=== PATIENT | female | born 1960 | race Caucasian/White ===

== ENCOUNTER 2024-10-07 21:29 | Emergency (ER) | payer OTHER, SELFPAY ==
[2024-10-07] VITALS (9 sets, daily range): BP systolic 149; BP diastolic 94; PULSE 117–125; RESP 26; TEMP 37; O2SAT 1–95; BMI 24.8
--- NOTE | 2024-10-07 21:49 | ED.GENADULT ---
HPI - General Adult General Chief complaint: Shortness of Breath/Dyspnea Stated complaint: difficulty breathing Time Seen by Provider: 10/07/24 21:41 History of Present Illness HPI narrative: hx of COPD/ chronic emphazema. smokes 1 pack per day for the past 50 years. does not use home O2, has been having increased SOB starting last night. tried her nebulizers to help her but did not feel much relief. 86 % on room air, 64-year-old woman presenting to the emergency department concern of increasing shortness of breath. Underlying history of COPD. Shortness of breath particularly marked with exertion is been particularly increased beginning yesterday evening. She does smoke a pack a day currently. 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 Does have levalbuterol nebulizations. Has probably had 4 or 5 of them today and 1 about an hour prior to arrival. Due to insurance coverage/cost no longer has a controller medication. She has not had a fever. Does have home oximetry in would note her baseline oxygen saturation to be 92%; 96% on a good day she says. Related Data Home Medications ?Medication ?Instructions ?Recorded ?Confirmed albuterol 90 mcg/actuation aerosol mcg inhalation .prn 10/07/24 inhaler Previous Rx's ?Medication ?Instructions ?Recorded budesonide-formoterol HFA 80 2 inh inhalation BID #10.2 grams 10/08/24 mcg-4.5 mcg/actuation aerosol inhaler (Symbicort) ipratropium 0.5 mg-albuterol 3 mg 3 ml inhalation QID PRN shortness 10/08/24 (2.5 mg base)/3 mL nebulization of breath #90 mL soln prednisone 20 mg tablet 40 mg (2 x 20 mg) PO DAILY 5 days 10/08/24 #10 tabs Allergies Allergy/AdvReac Type Severity Reaction Status Date / Time Sulfa (Sulfonamide Allergy Verified 10/07/24 21:41 Antibiotics) Review of Systems Status of ROS: Reports: 6 or more systems reviewed and unremarkable except as noted in History and below PFSH PFS Social History Smoking Status: Former smoker Do you use any of these nicotine containing products: None Second hand tobacco smoke exposure: No Non-prescribed substance use: denies use service: No Exam Narrative: Exam Narrative: Pleasant. Seated in bed leaning over table. Is labored in her breathing. Oxygenating 88-90% on 1 L nasal cannula. Lungs with generally diminished breath sounds. Trace end-expiratory wheeze in the mid chest. Moderate kyphosis. Heart is tachycardic. Generally tremulous. Oropharynx is little sticky. Lower extremities without edema. Const: Vital Signs, click to edit/add: Vital Signs - 24 hr 10/07/24 21:37 10/07/24 21:46 10/07/24 21:47 Temperature 98.6 F Pulse Rate Pulse Rate [Pulse Oximeter] 121 H Respiratory Rate 26 H Blood Pressure [Ri ght Upper Arm] 149/94 H Pulse Oximetry 88 86 L 89 Oxygen Delivery Me thod Nasal Cannula Room Air Nasal Cannula Oxygen Flow Rate 1 Fraction of Inspir ed Oxygen 1 10/07/24 21:59 10/07/24 22:00 10/07/24 22:15 Temperature Pulse Rate 124 H 124 H 125 H Pulse Rate [Pulse Oximeter] Respiratory Rate Blood Pressure [Ri ght Upper Arm] Pulse Oximetry 90 89 95 Oxygen Delivery Me thod Oxygen Flow Rate Fraction of Inspir ed Oxygen 10/07/24 22:30 10/07/24 22:45 Temperature Pulse Rate 117 H 117 H Pulse Rate [Pulse Oximeter] Respiratory Rate Blood Pressure [Ri ght Upper Arm] Pulse Oximetry 90 90 Oxygen Delivery Me thod Oxygen Flow Rate Fraction of Inspir ed Oxygen Documenting provider has reviewed patient's vital signs: yes Course Vital Signs Vital signs: Initial Vital Signs Temperature 98.6 F 10/07/24 21:37 Temperature Source Temporal Artery Scan 10/07/24 21:37 Pulse Rate 121 H 10/07/24 21:37 Respiratory Rate 26 H 10/07/24 21:37 Blood Pressure 149/94 H 10/07/24 21:37 Blood Pressure Mean 112 H 10/07/24 21:37 Blood Pressure Position Sitting 10/07/24 21:37 Pulse Oximetry 88 10/07/24 21:37 Oxygen Delivery Method Nasal Cannula 10/07/24 21:37 Oxygen Flow Rate 1 10/07/24 21:37 Vital Signs Temperature 98.6 F 10/07/24 21:37 Pulse Rate 121 H 10/07/24 21:37 Respiratory Rate 26 H 10/07/24 21:37 Blood Pressure 149/94 H 10/07/24 21:37 Pulse Oximetry 88 10/07/24 21:37 Oxygen Delivery Method Nasal Cannula 10/07/24 21:37 Oxygen Flow Rate 1 10/07/24 21:37 Temperature 98.6 F 10/07/24 21:37 Pulse Rate 117 H 10/07/24 22:45 Respiratory Rate 26 H 10/07/24 21:37 Blood Pressure 149/94 H 10/07/24 21:37 Pulse Oximetry 90 10/07/24 22:45 Oxygen Delivery Method Nasal Cannula 10/07/24 21:47 Oxygen Flow Rate 1 10/07/24 21:37 Fraction of Inspired Oxygen 1 10/07/24 21:47 Medications Administered Medications: Generic Name Dose Route Start Last Admin Trade Name Freq PRN Reason Stop Dose Admin Albuterol/Ipratropium 1 neb 10/07/24 23:26 10/07/24 23:30 Iprat-Albut 0.5-2.5 Mg/3 Ml [facility] 10/07/24 23:27 1 neb ONCE ONE Administration Discontinued Medications Generic Name Dose Route Start Last Admin Trade Name Freq PRN Reason Stop Dose Admin Albuterol/Ipratropium 1 neb 10/07/24 21:58 10/07/24 22:20 Iprat-Albut 0.5-2.5 Mg/3 Ml [facility] 10/07/24 21:59 1 neb ONCE ONE Administration Lorazepam 0.5 mg 10/07/24 21:58 10/07/24 22:20 Lorazepam 2 Mg/Ml Inj IVP 10/07/24 21:59 0.5 mg ONCE ONE Administration Methylprednisolone Sodium Succinate 80 mg 10/07/24 21:58 10/07/24 22:21 Methylprednisolone Sod Succ 62.5 Mg/Ml (125) IVP 10/07/24 21:59 80 mg ONCE ONE Administration Medical Decision Making MDM Narrative Medical decision making narrative: Will give DuoNeb here. With COPD would benefit more from ipratropium bromide I think. Presumably level viewed oral as what is covered by insurance; will give albuterol here. Will need to find out what can be covered for controller medication. Would also encourage smoking cessation. This might be a pneumonia or pneumothorax as well though I doubt both these. Chest x-ray one view portable. Continue on oxygen for now not wanting to become hypercapneic Given DuoNeb and dose of lorazepam along with prednisone. Chest x-ray reviewed by me looks hyperexpanded. I do not appreciate infiltrate. No pneumothorax. The VBGs reviewed WNL On reassessment is clearly moving more air. Able to vocalize more. Less tremulous. Reports herself to feel more relaxed; muscles have relaxed. I did turn off nasal cannula oxygen and settled at 90%. Monitored for time now satting 83-84% on room air Will neb again. Might require admission for oxygen support Sats improved to 86-88% on room air. Certainly she will desaturate with ambulation. Would meet criteria for admission but would rather go; does not want to be admitted tonight. Cannot obtain oxygen at home for her tonight but well prescribe other medications and continuing course of steroid. See patient discharge plan for discussion Lab Data Lab results reviewed: Yes I reviewed the patient's lab results Labs: Lab Results 10/07/24 Range/Units 22:20 VBG pH 7.390 (7.32-7.43) VBG pCO2 46 (40-50) mmHG VBG pO2 < 30.1 (25-47) mmHG VBG HCO3 28 (21-28) mmol/L Discharge Plan Discharge Clinical Impression: COPD exacerbation, Nicotine dependence Patient Disposition: Home w/ Parent or Adult Condition: Improved Instructions: COPD (Chronic Obstructive Pulmonary Disease) (ED) Additional Instructions: I still think you can quit smoking. Sending in DuoNebs to your pharmacy. I would like you to do these 4 times a day for the next 4 days. Take this nebulizer tubing with you. Please follow-up to discuss his struggles with anxiety primary care make a plan that might be more healthy, sustaining for you. Also need to be sure that you can get the right controller medication; should include steroid and of course be covered by your insurance. Pharmacy can also help you find this. Can also call your insurance of course. The one I prescribed may not be the right 1 for you. Might benefit from having ipratropium bromide in combination with a steroid. That is in your prescribed nebulizer however for now. Would be good to follow-up for lung function visit as well. Need to know the treatments are limiting further injury. Return for persistent increased shortness of breath, fever, worsening chest pain. Prescriptions: New ipratropium-albuterol 0.5 mg-3 mg(2.5 mg base)/3 mL solution for nebulization 3 ml inhalation QID PRN (Reason: shortness of breath) Qty: 90 0RF prednisone 20 mg tablet 40 mg PO DAILY 5 Days Qty: 10 1RF budesonide-formoterol [Symbicort] 80-4.5 mcg/actuation HFA aerosol inhaler 2 inh inhalation BID Qty: 10.2 1RF Rx Instructions: Rinse mouth after inhalation No Action albuterol 90 mcg/actuation aerosol inhalation .prn Follow Up/Referrals: Provider,Not a Local [Primary Care Provider] - Stand Alone Forms: [employer] Info Instructions
--- NOTE | 2024-10-07 21:58 | CRLHL7_ITS ---
For Patients: As a result of the Century Cures Act, medical imaging exams and procedure reports are released immediately into your electronic medical record. You may view this report before your referring provider. If you have questions, please contact your health care provider. INDICATION: Dyspnea, COPD, cough. TECHNIQUE: Chest 1 view. COMPARISON: None. FINDINGS: Cardiovascular and mediastinum: Heart size and vasculature are normal in caliber and appearance. Lungs and pleural spaces: Hyperexpanded lungs with flattening of the hemidiaphragms. No consolidation, pleural effusion, or pneumothorax. Bones and soft tissues: Mild dextroconvex curvature of the spine. Otherwise, unremarkable for age IMPRESSION: No evidence of an acute pulmonary in the setting of emphysema. Dictated by Maxwell Mendoza MD @ 10/07/2024 10:37:52 PM (Electronically Signed)
--- OUTSIDE RECORDS SUMMARY | 2024-10-07 22:13 | XMS_ITS | Clinical Summary ---
Author Organization [facility] Address [place], [place] [address] Care Team Providers Care [employer] Certified Network Professional Name Role Phone Dolores Luis MD Primary Care Provider + [phone] Allergies Active Allergy Reactions Criticality Noted Date Comments Mafenide Hives 05/12/2010 Sulfa, noted as a child Pneumococcal Vaccine Other - Describe In Comment Field 08/05/2015 Redness, pain and swelling, hot to the touch Redness, pain and swelling, hot to the touch Sulfa (Sulfonamide Antibiotics) *Unknown 01/09/2021 Medications Medication Sig Dispensed Refills Start Date End Date Status LIDODERM 5 %(700 mg/patch) patch APPLY 1 PATCH TO PAINFUL AREA OF SKIN FOR UP TO 12 HOURS WITHIN A 24-HOUR PERIOD. 30 Patch 0 09/06/2013 Active ascorbic acid (VITAMIN C) 1,000 mg tablet Take 1 tablet by mouth once daily. 0 04/30/2016 Active Cholecalciferol, Vitamin D3, (VITAMIN D-3) 400 unit capsule 01/20/2020 Active famotidine (Pepcid AC) 10 mg tablet 11/21/2020 Active ibuprofen-diphen hydrAMINE 200-25 mg cap Take 1 Tablet by mouth. Active traZODone (DESYREL) 50 mg tabletIndication s:Insomnia, idiopathic Take 1-3 tablets at bedtime 200 Tablet 1 04/21/2022 Active buPROPion (WELLBUTRIN SR) 150 mg Sustained-Releas e tabletIndication s:Tobacco abuse Take 1 Tablet (150 mg) by mouth 2 times daily. 180 Tablet 04/21/2022 Active zolpidem (AMBIEN) 10 mg tabletIndication s:Primary insomnia TAKE 1 TABLET (10 MG) BY MOUTH AT BEDTIME IF NEEDED FOR SLEEP. 60 Tablet 09/27/2022 Active ibuprofen (ADVIL; MOTRIN) 800 mg tabletIndication s:Body aches TAKE 1 TABLET (800 MG) BY MOUTH 3 TIMES DAILY IF NEEDED. 270 Tablet 12/10/2022 Active Anoro Ellipta 62.5-25 mcg/actuation inhalerIndicatio ns:COPD mixed type (HC) INHALE 1 PUFF BY MOUTH 1X/DAY-DISCARD 6WKS AFTER OPENING/WHEN COUNTER READS '0', WHICHEVER COMES 1ST 60 Each 2 12/13/2023 Active levalbuterol (XOPENEX) 1.25 mg/3 mL nebulizer solutionIndicati ons:Other emphysema (HC) INHALE 3 ML VIA A NEBULIZER 2 TIMES DAILY FOR 90 DAYS. 180 mL 09/17/2024 Active levalbuterol (XOPENEX) 1.25 mg/3 mL nebulizer solutionIndicati ons:Other emphysema (HC) INHALE 3 ML VIA A NEBULIZER 2 TIMES DAILY FOR 90 DAYS. 180 mL 08/04/2024 4 Discontinued Active Problems Problem Noted Date Diagnosed Date Midline low back pain without sciatica 5 Controlled substance agreement terminated 2010 Overview (08/04/2017): Patient transferred to [facility] per note. Controlled substance agreement for vicodin 90/month on file and signed 09/28/2011. Designated pharmacy: Prescribing physician: Zeke Diagnosis: cervical disc disease hip pain Reviewed with patient on 01/28/14 Roman Alanis MD Tobacco use disorder 04/25/2011 Pain in joint, multiple sites 09/18/2010 COPD (chronic obstructive pulmonary disease) Primary insomnia 05/12/2010 Colon polyps 05/12/2010 Irritable bowel syndrome 05/12/2010 Headache(784.0) 05/12/2010 Routine health maintenance 05/12/2010 Overview (02/17/2017): Utox 01/18/17 negative for prescribed benzo and ambien. Positive for expected norco Resolved Problems Problem Noted Date Diagnosed Date Resolved Date Pulmonary emphysema 11/18/2015 11/17/20 16 Back pain 05/22/2013 11/18/2015 Overview (05/22/2013): Evisit Other emphysema 05/17/2011 11/17/2016 Pain medication agreement 09/21/2010 Overview (09/21/2010): Controlled substance agreement for vicodin bid 60/week on file and signed 09/21/2010. Designated pharmacy: [facility] Prescribing physician: Zeke Diagnosis: knee and hip pain after surgery Thomas Alanis MD .................... 09/21/2010 5:37 PM Encounters Date Type Department Care Team Description 09/14/2024 Refill [facility] [id number] [place] [phone] Dolores Luis MD Refill Request (Levalbuterol) 07/31/2024 Refill [facility] [id number] [place] [phone] Dolores Luis MD Refill Request (Levalbuterol) from Last 3 Months Immunizations Name Administration Dates Next Due AMB Influenza, IIV3 (Age >=3 years)(Flu Clinic Only) 09/04/2013 Influenza A (H1N1), Inactivated 11/07/2009 Influenza A (H1N1), Inactiva prem (Age >=3 Years) 11/07/2009 Influenza, IIV3 (Age 6-35 mos) 09/27/2011 Influenza, IIV3 (Age >=3 years) 08/21/20 12,09/27/2011,12/01/2010,2008,09/16/2006 Pneumococcal conj 13-Valent (Prevnar 13) 07/29/2015 Tdap 10/13/2021,04/29/2009 Family History Medical History Relation Name Comments Genetic Daughter Cancer-colon Father Cancer-breast Maternal Grandmother Hypertension Mother Genetic Paternal Grandfather Genetic Son Relation Name Status Comments Daughter Father (Age 55) colon canc er Maternal Grandmother Diagnos ed at 70 Mother COPD Paternal Grandfather Son Social History Tobacco Use Types Packs/Day Years Used Date Smoking Tobacco: Every Day Cigarettes 0.5 40 Smokeless Tobacco: Never Tobacco Cessation:Ready to Q uit: No; Counseling Given: No Alcohol Use Standard Drinks/Week Comments No 0 (1 standard drink = 0.6 oz pur e alcohol) PHQ-2 Answer Date Recorded PHQ-2 TOTAL SCORE 0 10/13/2021 Social Connections Answer Date Recorded Frequency of Communication with Friends and Fami ly Not on file 11/21/2021 Financial Resource Strain Answer Date R ecorded Difficulty of Paying Living Expenses Not on file 11/21/2021 Difficulty of Paying Living Expenses Not on file 11/21/2021 Sex and Gender Information Value Date Recorded Sex Assigned at Not on file Gender Identity Not on file Sexual Orientation Not on file Obstetrics History Last Filed Vital Signs Vital Sign Reading Time Taken Comments Blood Pressure 136/78 04/21/2022 11:11 AM CDT Pulse 95 04/21/2022 11:11 AM CDT Temperature 36.7 ??C (98 ??F) 04/21/2022 11:11 AM CDT Respiratory Rate 18 04/21/2022 11:11 AM CDT Oxygen Saturation 98% 04/21/2022 11:11 AM CDT Inhaled Oxygen Concentration - - Weight 85.3 kg (188 lb) 04/21/2022 11:11 AM CDT Height 160 cm (5' 3) 04/21/2022 11:11 AM CDT Body Mass Index 33.3 04/21/2022 11:11 AM CDT Plan of Treatment Health Maintenance Due Date Last Done Comments HIV for age 15-65 1975 Zoster (shingles) series for age 50+ (1 of 2) 2010 Fecal testing non-DNA (FIT,FOBT,iFOBT) for age 45-75 07/04/2013 07/04/2012 Mammogram for age 45-75 10/08/2015 10/08/20 14, 09/27/2014, 09/04/2013, Additional history exists Depression screening for age 12+ 10/13/2022 10/13/2021, 07/22/2021, 04/30/2016, Additional history exists BMI (ht and wt on same day) for age 18+ 04/21/2023 04/21/2022, 10/13/2021, 01/17/2021, Additional history exists Low Dose CT (for lung CA) age 50-80 04/30/2023 04/30/2022 COVID-19 vaccine series (2023- season) 2024 Influenza for age 50-64 07/22/2024 09/04/20 13, 08/21/2012, 09/27/2011, Additional history exists Lipids for age 45-75 10/13/2026 10/13/2021, 12/01/2010, 08/07/2009 Tetanus booster 10/13/2031 10/13/2021, 04/29/2009 Pneumococcal series for age 6-64 Aged Out 07/29/2015 No longer eligible based on patient's age to complete this topic Tdap Completed 10/13/2021, 04/29/2009 Hepatitis C screening for age 18-79 Completed 04/21/2022 Procedures Procedure Name Priority Date/Time Associated Diagnosis Comments CT CHEST SCREENING LOW DOSE WO CONTRAST Routine 04/30/2022 8:40 AM CDT Personal history of nicotine dependence ANTI HCV Routine 04/21/2022 11:45 AM CDT Need for hepatitis C screening test LIPID PANEL W REFLEX MEASURED LDL Routine 10/13/2021 6:07 PM MEAT DEPARTMENT MANAGER Routine general medical examination at health care facility XR MAMMO UNI DIAG FFDM LEFT (IA) Routine 10/08/2014 1:34 PM MEAT DEPARTMENT MANAGER Fibrocystic changes of left breast OCCULT BLOOD IFOBT STOOL Routine 07/04/2012 1:27 PM CDT Colon polyps from Last 3 Months or Most Recently Relevant to Health Maintenance Results * CT CHEST SCREENING LOW DOSE WO CONTRAST (04/30/2022 8:40 AM CDT) Anatomical Region Laterality Modality Computed Tomogra phy 04/30/2022 8:40 AM CDT Impressions 04/30/2022 9:15 PM CDT IMPRESSION: 1. ACR Assessment Category: Lung-RADS Category 2. Benign appearance or behavior. Recommendation: Continue annual screening, if clinically relevant. 2. Significant Incidental Finding(s): Category S: No. Download the LungRADS Assessment Categories table at this site: http://www.acr.org/Quality-Safety/Resources/LungRADS Narrative 04/30/2022 9:15 PM CDT EXAM: LOW DOSE LUNG CANCER SCREENING CT CHEST LOCATION: [facility] DATE/TIME: 04/30/2022 8:40 AM INDICATION: Lung cancer screening. History of smoking. COMPARISON: Chest CT performed 10/02/2012. TECHNIQUE: Scan obtained from the apices through the diaphragm without IV contrast. Low dose CT chest technique was used. Radiation dose for this scan was reduced using automated exposure control, adjustment of the mA and/or kV according to patient size, or iterative reconstruction technique. CONTRAST: None. FINDINGS: Lungs: Moderate changes of centrilobular emphysema in both upper lungs. A few tiny calcified granulomas are noted in both lungs. Mild scarring or linear atelectasis at the left lung base laterally. Several images through the lower lungs are degraded by patient motion artifact. Coronary Artery Calcification: None. Additional Findings: No enlarged lymph nodes in the chest. No pleural or pericardial effusions. There is incidentally noted lipomatous hypertrophy of the interatrial septum. Noncontrast views of the upper abdomen are limited by the low-dose technique. Degenerative changes are noted in the thoracic spine. Procedure Note Maxwell Lopez MD - 04/30/2022 EXAM: LOW DOSE LUNG CANCER SCREENING CT CHEST LOCATION: [facility] DATE/TIME: 04/30/2022 8:40 AM INDICATION: Lung cancer screening. History of smoking. COMPARISON: Chest CT performed 10/02/2012. TECHNIQUE: Scan obtained from the apices through the diaphragm without IV contrast. Low dose CT chest technique was used. Radiation dose for this scan was reduced using automated exposure control, adjustment of the mA and/or kV according to patient size, or iterative reconstruction technique. CONTRAST: None. FINDINGS: Lungs: Moderate changes of centrilobular emphysema in both upper lungs. A few tiny calcified granulomas are noted in both lungs. Mild scarring or linear atelectasis at the left lung base laterally. Several images through the lower lungs are degraded by patient motion artifact. Coronary Artery Calcification: None. Additional Findings: No enlarged lymph nodes in the chest. No pleural or pericardial effusions. There is incidentally noted lipomatous hypertrophy of the interatrial septum. Noncontrast views of the upper abdomen are limited by the low-dose technique. Degenerative changes are noted in the thoracic spine. IMPRESSION: IMPRESSION: 1. ACR Assessment Category: Lung-RADS Category 2. Benign appearance or behavior. Recommendation: Continue annual screening, if clinically relevant. 2. Significant Incidental Finding(s): Category S: No. Download the LungRADS Assessment Categories table at this site: http://www.acr.org/Quality-Safety/Resources/LungRADS Dolores Luis MD CT * ANTI HCV (04/21/2022 11:45 AM CDT) [facility] HEPATITIS C ANTIBODY Non-React chang Non-React chang 04/21/2022 11:25 PM CDT [facility] Comment:Antibodies to HCV no t detected; does not exclude the possibility of exposure to HCV. Blood BLOOD SPECIMEN / Unknown Venipuncture / Unknown 04/21/2022 11:45 AM CDT 04/21/2022 11:47 AM CDT Dolores Luis MD [facility] [address] [place] [address], * (ABNORMAL) LIPID PANEL W REFLEX MEASURED LDL (10/13/2021 6:07 PM MEAT DEPARTMENT MANAGER) [facility] CHOLESTEROL,TOTAL 221(H) 100 - 199 mg/dL 10/13/2021 10:40 PM MEAT DEPARTMENT MANAGER [facility] TRIGLYCERIDES 127 <150 mg/dL 10/13/2021 10:40 PM MEAT DEPARTMENT MANAGER [facility] HDL CHOLESTEROL 58 >40 mg/dL 10:40 PM MEAT DEPARTMENT MANAGER [facility] NON-HDL CHOLESTEROL 163(H) <145 mg/dl 10/13/2021 10:40 PM MEAT DEPARTMENT MANAGER [facility] CHOL/HDL RATIO 3.81 <4.50 10/13/2021 10:40 PM MEAT DEPARTMENT MANAGER [facility] LDL CHOLESTEROL 138(H) <=130 mg/dL 10/13/2021 10:40 PM MEAT DEPARTMENT MANAGER [facility] VLDL CHOLESTEROL 25 <=30 mg/dL 10/13/2021 10:40 PM MEAT DEPARTMENT MANAGER [facility] PROVIDER ORDERED STATUS RANDOM 10/13/2021 10:40 PM MEAT DEPARTMENT MANAGER [facility] Blood BLOOD SPECIMEN / Unknown Venipuncture / Unknown 10/13/2021 6:07 PM MEAT DEPARTMENT MANAGER 10/13/2021 6:07 PM MEAT DEPARTMENT MANAGER Dolores Luis MD CHEMISTRY [facility] [address] [place] [address], [place] * XR MAMMO UNI DIAG FFDM LEFT (10/08/2014 1:34 PM MEAT DEPARTMENT MANAGER) Anatomical Region Laterality Modality BREASTS, Breast Left Left Mammography Narrative 10/08/2014 1:57 PM MEAT DEPARTMENT MANAGER Diagnostic left breast Mammogram CLINICAL HISTORY: ?? Nodule in the left breast COMPARISON: outside films from 09/27 Technique: ??Full field digital ??MLO and CC views were obtained Findings: The breast tissue is moderately dense, less than 50%. ??The area of concern spreads out completely. ??There is no new suspicious mass or cluster of calcifications. Impression: No suspicious abnormality. Routine yearly screening mammography is recommended. The findings were discussed with the patient at the time of the examination. NICOLÁS BUTLER M.D. Diagnostic Radiologist [email or web address] Procedure Note Nicolás Butler MD - 10/08/2014 Diagnostic left breast Mammogram CLINICAL HISTORY: Nodule in the left breast COMPARISON: outside films from 09/27 Technique: Full field digital MLO and CC views were obtained Findings: The breast tissue is moderately dense, less than 50%. The area of concernspreads out completely. There is no new suspicious mass or cluster ofcalcifications. Impression: No suspicious abnormality. Routine yearly screening mammography is recommended. The findings were discussed with the patient at the time of theexamination. NICOLÁS BUTLER M.D. Diagnostic Radiologist [email or web address] Thomas Alanis MD MAMMO * OCCULT BLOOD IFOBT STOOL (07/04/2012 1:27 PM CDT) STOOL BLOOD ,IFOBT Negative Negative, Invalid 07/04/2012 1:39 PM CDT [facility] St[facility] specimen (specimen) STOOL SPECIMEN / Unknown 07/04/2012 1:27 PM CDT 07/04/2012 1:27 PM CDT Thomas Alanis MD [facility] [address] [place] [address] from Last 3 Months or Most Recently Relevant to Health Maintenance Care Teams [employer] Certified [employer] Professional Relationship Specialty [place] [id number] [place] [address] PCP - General Family Practice 01/09/21
[2024-10-07] MEDS: IPRAT-ALBUT 0.5-2.5 MG/3 ML NEB 1 NEB IH ×2 (22:20→23:30)
[2024-10-07] MEDS: LORazepam 2 MG/ML inj 0.5 MG IVP (22:20)
[2024-10-07] MEDS: METHYLPREDNISOLONE SOD SUCC 62.5 MG/ML (125) 80 MG IVP (22:21)
[2024-10-07 22:29] LABS: HCO3 VBG 28 mmol/L (21-28); PCO2 VBG 46 mmHG (40-50); PO2 VBG < 30.1 mmHG (25-47)
== END 2024-10-08 00:22 | disposition home or self-care (01) ==
PROVIDERS: Emergency Provider Family Medicine
DX: J44.1 Chronic obstructive pulmonary disease with (acute) exacerbation (principal); F17.200 Nicotine dependence, unspecified, uncomplicated
CPT/HCPCS: 36415; 71045; 82803; 96374; 96375; 99284; J2060; J2919

== ENCOUNTER 2025-05-17 08:30 | Emergency (ER) | payer OTHER, SELFPAY ==
--- OUTSIDE RECORDS SUMMARY | 2025-05-17 08:32 | XMS_ITS | Continuity of Care Document ---
Author Organization [facility] - [facility] T[facility]G Botello, Frankie Address [address] [facility] [address] [place] [address] Assessment No assessment recorded. Plan of Treatment Reminders Order Date Submit Date Provider Last Modified By Organization Details Last Modified Time Details Appointments Commerci al Physical 2024 04:00P M Navya Lees DNP Not available Not available Not available Routine Visit 2024 02:20P M Navya Lees DNP Not available Not available Not available Lab None recorded . Referral None recorded . Procedures None recorded . Surgeries None recorded . Imaging None recorded . Medication Orders None recorded . Patient TargetsNo targets recorded. Patient InstructionsNo instructions recorded. Reason for Referral None Reported. Results Created Date Observation Date Name Description Value Unit Range Abnormal Flag Note LastModifiedBy Organization Detail LastModifiedTime 05/02/20 25 04/30/2022 CT, chest , w/o contr ast No observ ation record ed. [email or web address] Available 06:12:25 05/02/20 25 01/17/2021 XR, chest , 2 view No observ ation record ed. [email or web address] Available 06:18:37 05/02/20 25 09/27/2014 MAMMO , scree chepe, bilat eral No observ ation record ed. [email or web address] Available 06:20:54 05/02/20 25 08/09/2011 colon oscop y scree chepe (PROC ) No observ ation record ed. [email or web address] Not Available 06:26:27 Result Notes None recorded. Problems Name Problem SNOMED Code Status Onset Date Resolution Date Notes Provider Name and Address Organization Details Recorded Time Irritable bowel syndrome 53614255 Active 2009 Linda Keshavared dy null, [place] - [facility] 5 06:06:27 Tobacco user 632825440 Active 2010 Linda Keshavared [place] [facility] 5 06:06:27 Chronic obstructive pulmonary disease 44474663 Active 2009 Linda Keshavared [place] [facility] 5 06:06:27 Headache 25999355 Active 2009 Linda Keshavared [place] [facility] 5 06:06:27 Low back pain 768335368 Active 2014 Linda Keshavared [place] [facility] 5 06:06:27 Patient encounter status 423191758 Active 2009 Linda Keshavared [place] [facility] 5 06:06:28 Drug therapy finding 009854448 Active 2010 Linda Keshavared [place] [facility] 5 06:06:28 Pain of multiple joints 57051718 Active 2009 Linda Keshavared [place] [facility] 5 06:06:28 Primary insomnia 1743136 Active 2009 Linda Keshavared [place] [facility] 5 06:06:28 Polyp of colon 71769032 Active 2009 Linda Keshavared dy [place] - [facility] 5 06:06:28 Dysuria 05981629 Active 2024 Navya Lees, JUAN [address], [place], [address] , [place] - [facility] 5 17:00:57 Osteopenia 651070513 Active 2024 Navya Lees DNP [address] [place], [address] , [facility] 5 10:19:05 Blood chemistry outside reference range 814074630 Active 2024 Navya Lees DNP [address] , [facility] 5 09:34:41 Disorder of bone 05244665 Active 2024 Navya Lees DNP [address] , [facility] 5 09:36:47 Acute urinary tract infection 391633265 Active 2024 Navya Lees DNP [address] , [facility] 11:30:20 Problem Notes None recorded. Procedures Surgical History Date Name Laterality Status Provider Name and Address Organization Details Recorded Time 025 Venipuncture, Blood Draw completed Nataly Grewal [facility] 05/08/2025 14:15:57 014 Date of Last Mammogram completed Linda Gaxiola [facility] 05/02/2025 06:32:48 011 Date of Last Colonoscopy completed Linda Gaxiola [facility] 05/02/2025 06:32:58 reconstruction of anterior cruciate ligament of knee joint completed Navya Lees DNP [address] [place], [address], [facility] 05/06/2025 16:20:45 section completed Linda Gaxiola [facility] 05/02/2025 06:31:31 nonsurgical manipulation of knee joint completed Linda Gaxiola [facility] 05/02/2025 06:32:13 Hysterectomy completed Navya Lees DNP [address], [place], [address], [facility] 05/06/2025 16:20:54 Imaging Results None recorded. Procedure Notes None recorded. Medical Equipment None Reported. Allergies Allergen ID Allergen Name Allergen Category Reaction Reaction Severity Criticality Documentation Date Start Date Code Code System Note Provider Name and Address Organization Details Recorded Time 46341 mafenide Not available hives Not available Not available 04/30/20252009 6572 RxNorm Sulfa , noted as a child Not Available khoi - External Data Service - prod 13:19:05 90376 Substance with sulfonami de structure and antibacte rial mechanism of action (substanc e) medicatio n Not available Not available Not available 04/30/20252020 87074 8003 SNOMED Other react ions and sever ities : '*Unk nown' . Linda Meyer ddy null, [facility] 5 06:05:58 66591 Pneumococ heidi vaccine Not available Not available Not available Not available 05/02/20252014 88393 7 RxNorm Linda armstrong null, [facility] 5 06:07:11 63214 mirtazapi ne medicatio n Not available Not available Not available 05/08/2025 01262 RxNorm Navya Lees DNP [address] [place], [address], [facility] 5 11:36:44 Medications Name Sig Start Date Stop Date Status Note LastModified by Organization Details LastModified Time bupropion HCl SR 150 mg tablet,12 hr sustained -release Take 150 mg twice a day by oral route. 05/06 completed Not Available Not Available Not Available ascorbic acid (vitamin C) 1,000 mg tablet 1000 mg by oral route. 2015 active Not Available Not Available Not Avai lable prednison e 10 mg tablet PLEASE SEE ATTACHED FOR DETAILED DIRECTIO NS 05/06 completed Not Available Not Available Not Available ipratropi um 0.5 mg-albute rol 3 mg (2.5 mg base)/3 mL nebulizat ion soln INHALE 3 ML VIA NEBULIZE R FOUR TIMES DAILY NEEDED FOR SHORTNES S OF BREATH 05/06 completed Not Available Not Available Not Available trazodone 50 mg tablet 05/06 completed Not Available Not Available Not Available azithromy philip 250 mg tablet TAKE 2 TABLETS BY MOUTH TODAY, THEN TAKE 1 TABLET DAILY FOR 4 DAYS DIRECTED 05/06 completed Not Available Not Available Not Available ibuprofen 800 mg tablet 800 mg 3 times a day by oral route. 2022 active Not Available Not Available Not Avai lable prednison e 20 mg tablet Take 2 tablets every day by oral route as directed for 5 days. 2024 active Not Available Not Available Not Avai lable Lidoderm 5 % topical patch 2012 active Not Available Not Available Not Avai lable cephalexi n 500 mg capsule Take 1 capsule twice a day by oral route as directed for 7 days. 2024 active Not Available Not Available Not Avai lable levalbute rol 1.25 mg/3 mL solution for nebulizat ion Inhale 1.25 mg 3 times a day by nebuliza tion route as needed for 30 days. 2024 active Not Available Not Available Not Avai lable zolpidem 10 mg tablet 10 mg by oral route. 2021 active Not Available Not Available Not Avai lable Pepcid AC 10 mg tablet 05/06 completed Not Available Not Available Not Available cholecalc iferol (vitamin D3) 10 mcg (400 unit) capsule 2019 active Not Available Not Available Not Avai lable cyclobenz aprine 5 mg tablet Take 1 tablet every day by oral route at bedtime for 30 days. 2024 active Not Available Not Available Not Avai lable mirtazapi ne 7.5 mg tablet Take 1 tablet every day by oral route at bedtime for 30 days. 2024 active Not Available Not Available Not Avai lable Mucinex 05/06 completed Not Available Not Available Not Available Mucinex D active Not Available Not Nancy ilable Not Available Symbicort 80 mcg-4.5 mcg/actua tion HFA aerosol inhaler INHALE 2 PUFFS TWICE A DAY RINSE MOUTH AFTER INHALATI ON 05/06 completed Not Available Not Available Not Available ibuprofen 200 mg-diphen hydramine HCl 25 mg capsule Take 1 {tbl} by oral route. 05/06 completed Not Available Not Available Not Available doxepin 3 mg tablet Take 1 tablet every day by oral route at bedtime for 30 days. 2024 active Not Available Not Available Not Avai lable Anoro Ellipta 62.5 mcg-25 mcg/actua tion powder for inhalatio n Inhale 1 puff every day by inhalati on route as directed for 90 days. 2024 active Not Available Not Available Not Avai lable marijuana (cannabis )-THC active in addition to Yi Kratom capsules Not Available Not Available Not Available Vitals None Recorded Social History Question Answer Notes LastModified by Organizat ion Details LastModified Time Tobacco Smoking Status Current Every Day Smoker [facility]ines, [place] [facility] 05/02/2025 06:09:20 Do You Have An Advance Directive? Yes [email or web address] Information not available 05/06/2025 Is Blood Transfusion Acceptable In An Emergency? Yes [email or web address] Information not available 05/06/2025 What Is Your Code Status? DNR Information not available 05/06/2025 Do You Have A Directive To Physicians? No [email or web address] Information not available 05/06/2025 What Is The Highest Grade Or Level Of School You Have Completed Or The Highest Degree You Have Received? IX93180-9 [email or web address] Information not available 05/06/2025 Are There Any Guns Present In Your Home? Yes [email or web address] Information not available 05/06/2025 Where Do You Live? [place] [email or web address] Information not available 05/06/2025 Do You Have Any Concerns About Sexual Activity? No Information not available 05/06/2025 Do You Have A Medical Power Of Community Support Professional? No Information not available 05/06/2025 Do You Have An Out Of Hospital DNR? Yes [email or web address] Information not available 05/06/2025 What Is Your Current Pack Years? 30ormorepack years [email or web address] Information not available 05/06/2025 Do You Have A Patient Advocate? No Information no t available 05/06/2025 What Is Your Relationship Status? [email or web address] Information not available 05/06/2025 Do You Use Your Seat Belt Or Car Seat Routinely? Yes Information not available 05/06/2025 Are You Sexually Active? No Information not available 05/06/2025 At What Age Did You Start Smoking Tobacco? 13 Information not available 05/06/2025 How Much Tobacco Do You Smoke? 1 PPD [email or web address] Information not available 05/06/2025 How Many Years Have You Smoked Tobacco? 52 [email or web address] Information not available 05/06/2025 Which Types Of Nicotine-free Products Have You Used? Ecig [email or web address] Information not available 05/06/2025 Sex: Female Functional Status Question Answer Note LastModified by Organizat ion Details LastModified Time Do you use any illicit or recreational drugs? Yes Daily THC user Information not available 05/06/2025 What is your level of alcohol consumption? None Information not available 05/06/2025 What is your exercise level? None [email or web address] Information not available 05/06/2025 Do you or have you ever used any nicotine-free cigarettes, vape, or chewing tobacco? Yes [email or web address] Information not available 05/06/2025 Do you currently use nicotine-free products or are you a former user of these products? Formerly used nicotine-raffaele e products [email or web address] Information not available 05/06/2025 Mental Status None recorded. Family History Relationship Description Onset Age of this Age Resolved Age Notes LastModified by Organization Details LastModified Time Father Malignant tumor of colon [email or web address] Not available 2024 15:45:12 Father Kidney stone Not av ailable 05/06/2025 16:19:27 Maternal Grandmother Malignant tumor of breast Not available 2024 15:45:12 Maternal Grandmother Family history of breast cancer [email or web address] Not available 2024 15:45:12 Mother Essential hypertension [email or web address] Not available 15:45:12 Mother Family history of chronic obstructive lung disease 71 [email or web address] Not available 15:45:13 Paternal Grandmother Malignant tumor of colon Not available 04/21 16:18:36 Medical History Condition Response Diabetes N COPD/Asthma Y Irregular Heartbeat Y Breast Cancer N High blood pressure (Hypertension) N Plantar Fasciitis N Urinary Incontinence N Diverticulitis N Stroke N Depression N Hypothyroidism N High cholesterol (Hyperlipidemia) N Heart Disease N Prediabetes N Osteoporosis N Gynecological History Statement/Question Response Date of Last Colonoscopy 08/09/2011 Date of Last Mammogram 09/27/2014 Obstetrics History GPAL:G 0 P 0 0 0 0 Immunizations Vaccine Type Date Status Note Provider Nam e and Address Organization Details Recorded Time Tdap 9 completed Linda Gaxiola null[place] - [facility] 05/02/2025 06:06:33 Tdap 1 completed Linda Gax[place]ola [place] [facility] 05/02/2025 06:06:33 Novel [id number], all formulations 9 completed Linda Gax[place]ola [place] [facility] 05/02/2025 06:06:33 Pneumococcal conjugate PCV 13 5 completed Linda Gax[place] [facility] 05/02/2025 06:06:33 Influenza, split virus, trivalent, preservative 1 completed Lindaangela Gax[place]ola [place] [facility] 05/02/2025 06:06:33 Influenza, split virus, trivalent, preservative 9 completed Linda Erasmoavabolady [place] [facility] 05/02/2025 06:06:33 Influenza, split virus, trivalent, preservative 10/01/201 2 completed Linda Keshavareddy [place] [facility] 05/02/2025 06:06:33 Influenza, split virus, trivalent, preservative 3 completed Linda [place]hav[place] [facility] 05/02/2025 06:06:33 Influenza, split virus, trivalent, preservative 6 completed [place]hav[place] [facility] 05/02/2025 06:06:33 Influenza, split virus, trivalent, preservative 1 completed Linda [place]hav[place] [facility] 05/02/2025 06:06:33 Influenza, split virus, trivalent, PF 1 completed [place]hav[place] [facility] 05/02/2025 06:06:33 Novel [id number] 9 completed Linda [place]hav[place] [facility] 05/02/2025 06:06:33 Past Encounters Encounter ID Performer Location Encounter Start Date Encounter Closed Date Diagnosis/Indication Diagnosis SNOMED-CT Code Diagnosis ICD10 Code Diagnosis Note [id number] Navya Lees, JUAN [place] [address] [facility] [address] [place] [address] 05/06/2025 15:23:19 05/06/2025 17:14:14 Primary insomnia 1005217 F51.01 - Insomnia remains symptomati c and ongoing despite previous treatments .- Patient has been self-medic ating with Tylenol PM, Kratom, and THC gummies, leading to kidney pain and grogginess .- Discussed risks of current self-medic ation regimen and potential for kidney damage.- Prescribed Doxepin for sleep, instructed to take as directed and monitor for effectiven ess and side effects.- Additional ly prescribed Flexeril (Cyclobenz aprine) as a muscle relaxant to be taken at night.- Advised to try either Doxepin or Flexeril first, and if ineffectiv e, to combine both at low doses.- Educated on the risks of long-term use of Zolpidem, especially with COPD, and the organizati on's policy on controlled substances .- Follow-up in 2 weeks to assess effectiven ess and tolerance of new medication s. Insur chavo will not cover doxepin per patient. Will send Gabapentin . Low back pain 124433480 M54.50 - Patient reports intermitte nt use of Lidoderm patches for shoulder pain secondary to past antibiotic use. - Prescribed Ibuprofen as needed for pain management . - Advised to monitor pain and report any changes or worsening symptoms. Chronic ob structive pulmonary disease 85077766 J44.9 - Chronic condition, currently stable but with recent exacerbati on in November.- Prescribed Prednisone 40 mg daily for 5 days to manage current symptoms and improve breathing. - Refilled Anoro Ellipta and Levalbuter ol for nebulizati on.- Advised to use Levalbuter ol as needed, ideally not more than once daily to avoid dependency .- Discussed the importance of avoiding respirator y depressant s like Zolpidem.- Recommende d follow-up with pulmonolog ist if symptoms persist or worsen. Family his tory of breast cancer [id number] Z80.3 - Patient has a family history of breast cancer. - Educated on the importance of regular mammograms despite patient's reluctance . - Discussed risks and benefits of mammograph y. Family his tory of cancer of colon 307564767 Z80.0 - Patient has a family history of colon cancer. - Educated on the importance of regular screenings despite patient's reluctance . - Discussed risks and benefits of colonoscop y. Osteopenia 142949096 M85 .80 - Previous diagnosis of osteopenia confirmed by bone density scan.- Advised to take Vitamin D3 and Calcium 1200 mg daily to support bone health.- Educated on the importance of weight-samantha ring exercises and avoiding smoking and excessive alcohol consumptio n.- Recommende d follow-up bone density scan to monitor progressio n. Osteopenia What You Need to KnowOsteop enia means your bones are weaker than normal but not weak enough to be called osteoporos is. It is a common condition as we age, especially in women after menopause. We find it through a bone density test (DEXA scan). What It Means: Your bones have started to lose strength, which increases your risk for fractures (broken bones) especially in the spine, hip, and wrist. Osteopeni a does not usually cause pain or symptoms, so bone scans are the only way to know. What You Can Do:1. Calcium & Vitamin Do Aim for 1,200 mg of calcium and 800 1,000 IU of vitamin D daily from food or supplement s.2. Exerciseo Do weight-samantha ring (walking, dancing) and strength-t raining exercises to help maintain bone strength.3 . Fall Prevention o Use handrails, remove loose rugs, wear sturdy shoes, and keep rooms well-lit.4 . Avoid Smoking & Limit Alcoholo Smoking and too much alcohol can weaken your bones.5. Medication so You may not need medicine yet, but if your bone loss worsens, your doctor may talk to you about treatments like bisphospho nates. Follow-Up: Repeat your DEXA scan every 2 years or as advised. Let us know if you develop new back pain, height loss, or have a fall. Call the Clinic If: You have a fall You have questions about supplement s You need help with exercise or home safety Dysuria 50942631 R30.0 - Patient reports pain/disco mfort with urination. - UA/UC as below. [id number] JUAN Ma [address] [facility] [address] [place] [address] 05/08/2025 09:21:17 05/08/2025 14:16:08 Health Concerns Section Related Observation LastModified by Organization Dethammad ls LastModified Time None Recorded Concern Status LastModified by Organization Details LastModified Time None Recorded Payers Encounter Date Sequence Insurance Name Policy Number Policy Johnson Covered Member ID Johnson Member ID Guarantor Name 05/08/2025 1 [facility] [id number] [facility] [id number] [facility] Episode No OBEpisode recorded.
[2025-05-17 08:33] VITALS: BP 147/82; PULSE 106; RESP 18; TEMP 36.1; O2SAT 99; BMI 27.4
--- OUTSIDE RECORDS SUMMARY | 2025-05-17 08:33 | XMS_ITS | Data Portability ---
Author Organization [facility] - [facility] [place], [place] Address [address] [place] [address] Assessment Encounter Date Assessment Date Assessment LastModified by Organization Details LastModified Time 05/06/2025 05/06/2025 The patient is a 65-year-old female with a history of COPD, presenting for initial visit and evaluation of insomnia and dyspnea. Total time spent: __66__ minutes on this visit including but not limited to the following tasks: Preparing to see patient and reviewing history Performing medical appropriate evaluation Providing counseling and patient/family/c aregiver education ordering tests/medication /imaging/procedu res Documenting clinical information into patent's medical record Coordinating referrals or communicating with other health care staff Next AWV Appointment Scheduled: YES Next Routine Visit Scheduled: YES [email or web address] Not available 05/07/2025 10:17:11 Plan of Treatment Reminders Order Date Submit Date Provider Last Modified By Organization Details Last Modified Time Details Appointments Commerci al Physical 2024 04:00P M Navya Lees DNP Not available Not available Not available Routine Visit 2024 02:20P M Navya Lees DNP Not available Not available Not available Lab urinalys is, dipstick , auto 2024 025 [email or web address] [facility] [address], [place], [address], 05/06/2025 18:46:00 culture, urine 2024 025 KHOI [facility] [place] [facility], [address], [place], [address], 05/08/2025 09:05:21 Referral None recorded . Procedures None recorded . Surgeries None recorded . Imaging None recorded . Medication Orders doxepin 3 mg tablet 2024 025 [facility] [address], [place], [address], 05/06/2025 18:46:05 mirtazap ine 7.5 mg tablet 2024 025 [facility], [address], [place], [address], 05/07/2025 10:19:12 cycloben zaprine 5 mg tablet 2024 025 [facility], [address], [place], [address], 05/06/2025 18:46:06 predniso ne 20 mg tablet 2024 025 [facility], [address] , [place], [address], 05/06/2025 18:46:05 levalbut gene 1.25 mg/3 mL solution for nebuliza tion 2024 025 [facility] [address] [place], [address], 05/06/2025 18:46:05 Patient TargetsNo targets recorded. Patient Instructions Encounter Date Encounter Id Patient Instructions Last Modified By Organization Details Last Modified Time 05/06/2025 [id number] - Prednisone 40 mg once daily for 5 days to help reduce your bronchitis and wheezing; prescription sent to your [facility] pharmacy. - Try doxepin at bedtime for sleep; if it does not help, you may add the prescribed Flexeril (muscle relaxant) at bedtime as directed start with one medication and see how you feel before combining. - Refills have been sent for your Anoro Ellipta inhaler and levalbuterol nebulizer solution. - Take vitamin D plus 1,200 mg of calcium daily for bone health, do weight-bearing exercises (walking or light weights), and avoid smoking and excess alcohol to help maintain your bone density. - Schedule fasting blood work in the morning to check electrolytes, kidney and liver function, cholesterol, A1c, and thyroid levels; drop off a urine sample today for UTI testing. - If your urine dipstick shows infection or the culture returns positive, an antibiotic prescription will be sent to your pharmacy. - Call this office for any urgent concerns rather than going to another urgent care so we can schedule you for a timely in-office visit. - For medication questions or follow-up via patient portal, use the phone number on your folder or send a secure message online. - Our staff will coordinate any needed specialist referrals or imaging studies and will contact you to arrange your lab appointment and a comprehensive wellness physical. [email or web address] Not available 05/06/2025 16:54:35 General Reminder s: First Call your [facility] at [phone] for any urgent health related concerns that might arise after hours. If you are experiencing symptoms of true medical emergency like a heart attack, stroke or other, call 911 right away. If you are ever in the ER or get admitted to the hospital, please notify our clinic of your visit or admission, at the above phone number, within 24-48 hours of the event whenever possible. This will help us ensure we have your hospital records accessed in a timely fashion for us to see you after discharge. If you have never provided us with your POLST, Health Care Durable Power of Retention Manager, or other such medical forms, please bring it to your visit, to ensure it is a part of your medical record. If you would like to review or complete the forms, here are the links: [email or web address] Please remember to bring all your medication bottles to your medical visits in a secure bag. Not available 05/07/2025 10:19:09 Reason for Referral None Reported. Results Created Date Observation Date Name Description Value Unit Range Abnormal Flag Note LastModifiedBy Organization Detail LastModifiedTime 05/06/20 25 05/09/2025 CULTU RE, URINE , ROUTI NE culture, urine, routine SEE NOTE abnormal CULTU RE, URINE , ROUTI NE Micro Numbe r: [id number] Test Statu s: Final Speci men Sourc e: Urine Speci men Quali ty: Adequ ate Resul t: Great er than 100,0 00 CFU/m L of Esche rosenda a coli E.col i ----- ----- ----- - INT LOTUS AMOX/ CLAVU LANAT E S 4 AMP/S ULBAC HUGHES S 4 CEFAZ PASCALE NR <=4 2 CEFEP JUSTICE S <=0.1 2 CEFTA ZIDIM E S <=1 CEFTR IAXON E S <=0.2 5 CIPRO FLOXA PHILIP S <=0.0 6 GENTA MICIN S <=1 IMIPE NEM S <=0.2 5 LEVOF LOXAC IN S <=0.1 2 MEROP ENEM S <=0.2 5 NITRO FURAN TOIN I 64 PIP/T AZOBA CTAM S <=4 TRIME THOPR IM/JUAREZ LFA S <=20 S = Susce ptibl e I = Inter media te R = Resis tant NS = Not susce ptibl e SDD = Susce ptibl e Dose Depen dent * = Not Teste d NR = Not Repor prem NN = See Thera py Comme nts THERA PY COMME NTS Note 1: For infec tions other than uncom plica prem UTI cause d by E. coli, K. pneum oniae or P. mirab ilis: Cefaz pascale is resis tant if LOTUS > or = 8 mcg/m L. (Dist ingui shing susce ptibl e versu s inter media te for isola lisset with LOTUS < or = 4 mcg/m L requi res addit ional testi ng.) Note 2: For uncom plica prem UTI cause d by E. coli, K. pneum oniae or P. mirab ilis: Cefaz pascale is susce ptibl e if LOTUS <32 mcg/m L and predi cts susce ptibl e to the oral agent s cefac anil, cefdi declan, cefpo doxim e, cefpr ozil, cefur oxime , cepha lexin and lorac arbef . Not Available [facility] [place] [facility] [address], [place], [address], 05/09/2025 08:35:55 05/06/2005/06/2025 urina lysis , dipst ick, auto Color Yellow Not Available [place] [address] [facility] [address], [place], [address], 05/06/2025 17:01:10 05/06/20 25 05/06/2025 urina lysis , dipst ick, auto Clarity Clear Not Available [place] [address] [facility] [address], [place], [address], 05/06/2025 17:01:10 05/06/20 25 05/06/2025 urina lysis , dipst ick, auto Leukocytes Trace (+-) Not Available [place] [address] [facility] [address], [place], [address], 05/06/2025 17:01:10 05/06/20 25 05/06/2025 urina lysis , dipst ick, auto Nitrite negati ve Not Available [place] [address] [facility] [address], [place], [address], 05/06/2025 17:01:10 05/06/20 25 05/06/2025 urina lysis , dipst ick, auto Urobilinogen 0.2 (3.5) Not Available [place] [address] [facility] [address], [place], [address], 05/06/2025 17:01:10 05/06/20 25 05/06/2025 urina lysis , dipst ick, auto Protein Trace (15) Not Available [place] [address] [facility] [address], [place], [address], 05/06/2025 17:01:10 05/06/20 25 05/06/2025 urina lysis , dipst ick, auto pH 6.0 Not Available [place] [address] [facility] [address], [place], [address], 05/06/2025 17:01:10 05/06/20 25 05/06/2025 urina lysis , dipst ick, auto Blood Large (3+) Not Available [place] [address] [facility] [address], [place], [address], 05/06/2025 17:01:10 05/06/20 25 05/06/2025 urina lysis , dipst ick, auto Specific [place] 1.015 Not Available [place] [address] [facility] [address], [place], [address], 05/06/2025 17:01:10 05/06/20 25 05/06/2025 urina lysis , dipst ick, auto Ketone Negati ve (-) Not Available [place] [address] [facility] [address], [place], [address], 05/06/2025 17:01:10 05/06/20 25 05/06/2025 urina lysis , dipst ick, auto Bilirubin Negati ve (-) Not Available [place] [address] [facility] [address], [place], [address], 05/06/2025 17:01:10 05/06/20 25 05/06/2025 urina lysis , dipst ick, auto Glucose Negati ve (-) Not Available [place] [address] [facility] [address], [place], [address], 05/06/2025 17:01:10 05/08/20 25 05/09/2025 LIPID PANEL WITH REFLE X TO DIREC T LDL cholesterol, total 202 mg/dL <200 high Not Available [facility] [place] [facility] [address] [facility], [place], [address], 05/09/2025 09:33:04 05/08/20 25 05/09/2025 LIPID PANEL WITH REFLE X TO DIREC T LDL HDL cholesterol 60 mg/dL > or = 50 normal Not Available [facility] [place] [facility] [address] [facility], [place], [address], 05/09/2025 09:33:04 05/08/20 25 05/09/2025 LIPID PANEL WITH REFLE X TO DIREC T LDL triglyceride s 139 mg/dL <150 normal Not Available [facility] [address] [facility], [place], [address], 05/09/2025 09:33:04 05/08/20 25 05/09/2025 LIPID PANEL WITH REFLE X TO DIREC T LDL LDL-choleste rol 117 mg/dL _(heidi c) high Refer ence range : <100 Bibiana able range <100 mg/dL for prima ry preve ntion ; <70 mg/dL for patie nts with CHD or diabe tic patie nts with > or = 2 CHD risk facto rs. LDL-C is now calcu lated using the Evie n-Hop kins calcu latio n, which is a valid ated novel metho d provi ding ranjan r accur acy than the Fried christina equat ion in the estim ation of LDL-C . Evie martin SS et al. SHARAN. 2013; 310(1 9): 2061- 2068 (http ://ed ucati on.Qu Erik INVOLTAchelsey [employer]. com/f aq/FA Q164) Not Available [facility] [place] [facility] [address] [facility], [place], [address], 05/09/2025 09:33:04 05/08/20 25 05/09/2025 LIPID PANEL WITH REFLE X TO DIREC T LDL chol/HDLC ratio 3.4 (calc ) <5.0 normal Not Available [facility] [place] [address] [facility], [place], [address], 05/09/2025 09:33:04 05/08/20 25 05/09/2025 LIPID PANEL WITH REFLE X TO DIREC T LDL non HDL cholesterol 142 mg/dL _(heidi c) <130 high For patie nts with diabe lisset plus 1 major ASCVD risk facto r, treat ing to a non-H DL-C goal of <100 mg/dL (LDL- C of <70 mg/dL ) is domenico brooks optio n. Not Available [facility] [address] [place], [address], 05/09/2025 09:33:04 05/08/20 25 05/09/2025 COMPR EHENS JEFF METAB OLIC PANEL glucose 85 mg/dL 65-99 normal Fasti ng refer ence inter len Not Available [facility] [address] [place], [address], 05/09/2025 09:33:06 05/08/20 25 05/09/2025 COMPR EHENS JEFF METAB OLIC PANEL urea nitrogen (BUN) 16 mg/dL 7-25 normal Not Available [facility] [address] [place], [address], 05/09/2025 09:33:06 05/08/20 25 05/09/2025 COMPR EHENS JEFF METAB OLIC PANEL creatinine 0.93 mg/dL 0.50-1 .05 normal Not Available [employer] [address] [place], [address], 05/09/2025 09:33:06 05/08/20 25 05/09/2025 COMPR EHENS JEFF METAB OLIC PANEL eGFR 68 mL/mi n/1.7 3m2 > or = 60 normal Not Available [facility] [address] [place], [address], 05/09/2025 09:33:06 05/08/20 25 05/09/2025 COMPR EHENS JEFF METAB OLIC PANEL BUN/creatini ne ratio SEE NOTE: (calc ) 6-22 Not Repor prem: BUN and Creat inine are withi n refer ence range . Not Available [facility] [address] [facility] [place], [address], 05/09/2025 09:33:06 05/08/20 25 05/09/2025 COMPR EHENS JEFF METAB OLIC PANEL sodium 142 mmol/ L 135-14 6 normal Not Available [facility] [address] [facility] [place], [address], 05/09/2025 09:33:06 05/08/20 25 05/09/2025 COMPR EHENS JEFF METAB OLIC PANEL potassium 4.8 mmol/ L 3.5-5. 3 normal Not Available [facility] [address] [facility] [address] [place], [address], 05/09/2025 09:33:06 05/08/20 25 05/09/2025 COMPR EHENS JEFF METAB OLIC PANEL chloride 103 mmol/ L 98-110 normal Not Available [facility] [address] [facility] [address] [place], [address], 05/09/2025 09:33:06 05/08/20 25 05/09/2025 COMPR EHENS JEFF METAB OLIC PANEL carbon dioxide 30 mmol/ L 20-32 normal Not Available [facility] [address] [facility] [place], [address], 05/09/2025 09:33:06 05/08/20 25 05/09/2025 COMPR EHENS JEFF METAB OLIC PANEL calcium 9.9 mg/dL 8.6-10 .4 normal Not Available [facility] [address] [facility] [place], [address], 05/09/2025 09:33:06 05/08/20 25 05/09/2025 COMPR EHENS JEFF METAB OLIC PANEL protein, total 6.6 g/dL 6.1-8. 1 normal Not Available [facility] [address] [facility] [place], [address], 05/09/2025 09:33:06 05/08/20 25 05/09/2025 COMPR EHENS JEFF METAB OLIC PANEL albumin 4.1 g/dL 3.6-5. 1 normal Not Available [facility] [address] [place], [address], 05/09/2025 09:33:06 05/08/20 25 05/09/2025 COMPR EHENS JEFF METAB OLIC PANEL globulin 2.5 g/dL_ (calc ) 1.9-3. 7 normal Not Available [facility] [address] [facility] [address] [place], [address], 05/09/2025 09:33:06 05/08/20 25 05/09/2025 COMPR EHENS JEFF METAB OLIC PANEL albumin/glob ulin ratio 1.6 (calc ) 1.0-2. 5 normal Not Available [employer] [facility] [address] [facility] [place], [address], 05/09/2025 09:33:06 05/08/20 25 05/09/2025 COMPR EHENS JEFF METAB OLIC PANEL bilirubin, total 0.5 mg/dL 0.2-1. 2 normal Not Available [facility] [address] [facility] [place], [address], 05/09/2025 09:33:06 05/08/20 25 05/09/2025 COMPR EHENS JEFF METAB OLIC PANEL alkaline phosphatase 85 U/L 37-153 normal Not Available [facility] [employer] [facility] [address] [facility] [place], [address], 05/09/2025 09:33:06 05/08/20 25 05/09/2025 COMPR EHENS JEFF METAB OLIC PANEL AST 26 U/L 10-35 normal Not Available [facility] [address] [facility] [place], [address], 05/09/2025 09:33:06 05/08/20 25 05/09/2025 COMPR EHENS JEFF METAB OLIC PANEL ALT 23 U/L 6-29 normal Not Available [facility] [address] [place], [address], 05/09/2025 09:33:06 05/08/20 25 05/09/2025 CBC (INCL UDES DIFF/ PLT) white blood cell count 9.8 thous and/u L 3.8-10 .8 normal Not Available [facility] [address], [place], [address], 05/09/2025 09:33:07 05/08/20 25 05/09/2025 CBC (INCL UDES DIFF/ PLT) red blood cell count 5.31 lacey on/uL 3.80-5 .10 high Not Available [facility] [place] [address], [place], [address], 05/09/2025 09:33:07 05/08/20 25 05/09/2025 CBC (INCL UDES DIFF/ PLT) hemoglobin 15.4 g/dL 11.7-1 5.5 normal Not Available [facility] [place] [facility] [address], [place], [address], 05/09/2025 09:33:07 05/08/2005/09/2025 CBC (INCL UDES DIFF/ PLT) hematocrit 49.7 % 35.0-4 5.0 high Not Available [facility] [address], [place], [address], 05/09/2025 09:33:07 05/08/20 25 05/09/2025 CBC (INCL UDES DIFF/ PLT) MCV 93.6 fL 80.0-1 00.0 normal Not Available [facility] [place] [facility] [address], [place], [address], 05/09/2025 09:33:07 05/08/20 25 05/09/2025 CBC (INCL UDES DIFF/ PLT) MCH 29.0 pg 27.0-3 3.0 normal Not Available [facility] [place] [facility] [address], [place], [address], 05/09/2025 09:33:07 05/08/20 25 05/09/2025 CBC (INCL UDES DIFF/ PLT) MCHC 31.0 g/dL 32.0-3 6.0 low For adult s, a sligh t decre ase in the calcu lated MCHC value (in the range of 30 to 32 g/dL) is most likel y not clini laura signi ria t; jacey er, it shoul d be inter prete d with cauti on in [facility] n with other red cell chriss eters and the patie nt's clini heidi condi tion. Not Available [facility] [place] [facility] [address], [place], [address], 05/09/2025 09:33:07 05/08/20 25 05/09/2025 CBC (INCL UDES DIFF/ PLT) RDW 13.0 % 11.0-1 5.0 normal Not Available [facility] [place] [facility] [address], [place], [address], 05/09/2025 09:33:07 05/08/2005/09/2025 CBC (INCL UDES DIFF/ PLT) platelet count 249 thous and/u L 140-40 0 normal Not Available [facility] [place] [facility] [address], [place], [address], 05/09/2025 09:33:07 05/08/2005/09/2025 CBC (INCL UDES DIFF/ PLT) MPV 12.2 fL 7.5-12 .5 normal Not Available [facility] [place] [facility] [address], [place], [address], 05/09/2025 09:33:07 05/08/20 25 05/09/2025 CBC (INCL UDES DIFF/ PLT) absolute neutrophils 7928 cells /uL 1500-7 800 high Not Available [facility] [address], [place], [address], 05/09/2025 09:33:07 05/08/20 25 05/09/2025 CBC (INCL UDES DIFF/ PLT) absolute lymphocytes 1470 cells /uL 850-39 00 normal Not Available [facility] [place] [facility] [address], [place], [address], 05/09/2025 09:33:07 05/08/2005/09/2025 CBC (INCL UDES DIFF/ PLT) absolute monocytes 265 cells /uL 200-95 0 normal Not Available [facility] [address], [place], [address], 05/09/2025 09:33:07 05/08/20 25 05/09/2025 CBC (INCL UDES DIFF/ PLT) absolute eosinophils 59 cells /uL 15-500 normal Not Available [facility] [place] [facility] [address], [place], [address], 05/09/2025 09:33:07 05/08/20 25 05/09/2025 CBC (INCL UDES DIFF/ PLT) absolute basophils 78 cells /uL 0-200 normal Not Available [facility] [address], [place], [address], 05/09/2025 09:33:07 05/08/20 25 05/09/2025 CBC (INCL UDES DIFF/ PLT) neutrophils 80.9 % normal Not Available [facility] [address], [place], [address], 05/09/2025 09:33:07 05/08/20 25 05/09/2025 CBC (INCL UDES DIFF/ PLT) lymphocytes 15.0 % normal Not Available [facility] [address] [facility] [place], [address], 05/09/2025 09:33:07 05/08/20 25 05/09/2025 CBC (INCL UDES DIFF/ PLT) monocytes 2.7 % normal Not Available [facility] [place], [address], 05/09/2025 09:33:07 05/08/20 25 05/09/2025 CBC (INCL UDES DIFF/ PLT) eosinophils 0.6 % normal Not Available [facility] [address] [place], [address], 05/09/2025 09:33:07 05/08/20 25 05/09/2025 CBC (INCL UDES DIFF/ PLT) basophils 0.8 % normal Not Available [facility] [address] [place] [address], [address], 05/09/2025 09:33:07 05/08/20 25 05/09/2025 VITAM IN B12/F OLATE , SERUM PANEL vitamin B12 894 pg/mL 200-11 00 normal Not Available [facility] [place], [address], 05/09/2025 09:33:08 05/08/20 25 05/09/2025 VITAM IN B12/F OLATE , SERUM PANEL folate, serum 17.9 NG/mL normal Refer ence Range Low: <3.4 Borde rline : 3.4-5 .4 Natasha l: >5.4 Not Available [facility] [place], [address], 05/09/2025 09:33:08 05/08/20 25 05/09/2025 TSH W/REF KEATON TO FT4 TSH w/reflex to FT4 0.66 mIU/L 0.40-4 .50 normal Not Available [facility] [address] [place], [address], 05/09/2025 09:33:09 05/08/20 25 05/09/2025 VITAM IN D,25- OH,TO RUPERT,I A vitamin D,25-oh,tota l,ia 28 NG/mL 30-100 low Vitam in D Statu s 25-OH Vitam in D: Defic iency : <20 ng/mL Insuf ficie ncy: 20 - 29 ng/mL Optim al: > or = 30 ng/mL For 25-OH Vitam in D testi ng on patie nts on D2-juarez pplem entat ion and patie nts for whom quant itati on of D2 and D3 fract ions is requi red, the [facility] Assur eD(TM ) 25-OH VIT D, (D2,D 3), LC/MS /MS is recom moises d: order code 08343 (venkata ents >2yrs ). See Note 1 Note 1 For addit ional infor gypsy obrien refer to http: //regine bernsteinQue stDia gnost ics.c om/fa q/FAQ 199 (This link is being provi ded for infor lizette dsyon/ sebastien avila purpo ses only. ) Not Available [facility] [place] [facility] [address] [place], [address], 05/09/2025 09:33:10 05/08/2005/09/2025 HEMOG LOBIN A1C hemoglobin A1C 5.6 % <5.7 normal For the purpo se of scree chepe for the prese nce of diabe lisset: <5.7% Consi stent with the absen ce of diabe lisset 5.7-6 .4% Consi stent with incre ased risk for diabe lisset (pred iabet es) > or =6.5% Consi stent with diabe lisset This assay resul t is consi stent with a decre ased risk of diabe lisset. Curre ntly, no conse nsus exist s regar ding use of hemog lobin A1c for diagn osis of diabe lisset in child gwendolyn. Accor ding to Ameri can Diabe lisset Assoc iatio n (ADA) guide lines , hemog lobin A1c <7.0% repre sents optim al contr ol in non-p regna nt diabe tic patie nts. Diffe rent metri cs may apply to speci fic patie nt popul ation s. Stand ards of Medic al Care in Diabe lisset(A DA). Not Available [facility] [place] [facility] [address], [place], [address], 05/09/2025 09:33:11 05/02/20 25 04/30/2022 CT, chest , w/o [...] Organization Details Recorded Time Irritable bowel syndrome 73117306 Active 2009 Linda Erasmoavared dy null, [place] - [facility] 5 06:06:27 Tobacco user [id number] Active 2010 Linda Keshavared dy [place] [facility] 5 06:06:27 Chronic obstructive pulmonary disease 25732660 Active 2009 Linda Mattshavared dy [place] [facility] 5 06:06:27 Headache 36076625 Active 2009 Linda Mattshavared [place] [facility] 5 06:06:27 Low back pain 914052335 Active 2014 Linda Erasmoavared dy [place] [facility] 5 06:06:27 Patient encounter status [id number] Active 2009 Linda Mattshavared dy [place] [facility] 5 06:06:28 Drug therapy finding 510870097 Active 2010 Linda Keshavared dy [place] [facility] 5 06:06:28 Pain of multiple joints 64020089 Active 2009 Linda Mattshavared dy [place] [facility] 5 06:06:28 Primary insomnia 1866864 Active 2009 Linda Erasmoavared dy [place] [facility] 5 06:06:28 Polyp of colon 51109421 Active 2009 Linda Erasmoavared dy [place] [facility] 5 06:06:28 Dysuria 52518861 Active 2024 Navya Lees DNP [address], [place], [address] , [place] - [facility] 5 17:00:57 Osteopenia 542201211 Active 2024 Navya Lees DNP [address], [place], [address] , [place] [facility] [facility] 10:19:05 Blood chemistry outside reference range [id number] Active 2024 Navya Lees DNP [address], [place], [address] , [place] - [facility] 5 09:34:41 Disorder of bone 84948647 Active 2024 Navya Lees DNP [address] [place], [address] [place] [address] [facility] 09:36:47 Acute urinary tract infection 944722634 Active 2024 Navya Lees DNP [address] [place], [address] [place] [address] [facility] 11:30:20 Problem Notes None recorded. Procedures Surgical History Date Name Laterality Status Provider Name and Address Organization Details Recorded Time 025 Venipuncture, Blood Draw completed Nataly Grewal [facility] 05/08/2025 14:15:57 014 Date of Last Mammogram completed Linda Gaxiola [facility] 05/02/2025 06:32:48 011 Date of Last Colonoscopy completed Linda Gaxiola [facility] 05/02/2025 06:32:58 reconstruction of anterior cruciate ligament of knee joint completed Navya Lees DNP [address] [place], [address] [place] [address] [facility] 05/06/2025 16:20:45 section completed Linda Gaxiola [facility] 05/02/2025 06:31:31 nonsurgical manipulation of knee joint completed Linda Gaxiola [facility] 05/02/2025 06:32:13 Hysterectomy completed Nayva Lees DNP [address] [place], [address] [place] [address] [facility] 05/06/2025 16:20:54 Imaging Results None recorded. Procedure Notes None recorded. Medical Equipment None Reported. Allergies Allergen ID Allergen Name Allergen Category Reaction Reaction Severity Criticality Documentation Date Start Date Code Code System Note Provider Name and Address Organization Details Recorded Time 60548 mafenide Not available hives Not available Not available 04/30/20252009 6572 RxNorm Sulfa , noted as a child Not Available khoi - External Data Service - prod 13:19:05 86420 Substance with sulfonami de structure and antibacte rial mechanism of action (substanc e) medicatio n Not available Not available Not available 04/30/20252020 20886 8003 SNOMED Other react ions and sever ities : '*Unk nown' . Linda Betsy ddy null[place] - [facility] 5 06:05:58 80768 Pneumococ heidi vaccine Not available Not available Not available Not available 05/02/20252014 51256 7 RxNorm Linda Meyer ddy null[place] - [facility] 5 06:07:11 57393 mirtazapi ne medicatio n Not available Not available Not available 05/08/2025 45548 RxNorm Navya Lees , DNP [address] [facility], [place], [address] [place] [address] - [facility] 5 11:36:44 Medications Name Sig Start [...] marijuana (cannabis )-THC active in addition to Urdu Kratom capsules Not Available Not Available Not Available Vitals Date Recorded Body weight Body mass index (BMI) Body height Oxygen saturation Oxygen saturation in Arterial blood by Pulse oximetry Body temperature Heart rate Systolic blood pressure Diastolic blood pressure Provider Name and Address Organization Details Last Updated DateTime 30569.1 9 g 29.1 kg/m2 157.48 cm 95 % 95 % 98.2 [degF] 102 /min 133 mm[Hg] 82 mm[Hg] Lorena Smith [place] - [facility] 15:51:52 Social History Question Answer Notes LastModified by Organizat ion Details LastModified Time Tobacco Smoking Status Current Every Day Smoker [facility] [facility] 05/02/2025 06:09:20 Do You Have An Advance Directive? Yes [email or web address] Information not available 05/06/2025 Is Blood Transfusion Acceptable In An Emergency? Yes [email or web address] Information not available 05/06/2025 What Is Your Code Status? DNR [email or web address] Information not available 05/06/2025 Do You Have A Directive To Physicians? No [email or web address] Information not available 05/06/2025 What Is The Highest Grade Or Level Of School You Have Completed Or The Highest Degree You Have Received? [id number] Information not available 05/06/2025 Are There Any Guns Present In Your Home? Yes [email or web address] Information not available 05/06/2025 Where Do You Live? [place] [email or web address] Information not available 05/06/2025 Do You Have Any Concerns About Sexual Activity? No [email or web address] Information not available 05/06/2025 Do You Have A Medical Power Of Retention Manager? No Information not available 05/06/2025 Do You Have An Out Of Hospital DNR? Yes [email or web address] Information not available 05/06/2025 What Is Your Current Pack Years? 30ormorepack years [email or web address] Information not available 05/06/2025 Do You Have A Patient Advocate? No [email or web address] Information no t available 05/06/2025 What Is Your Relationship Status? Information not available 05/06/2025 Do You Use Your Seat Belt Or Car Seat Routinely? Yes Information not available 05/06/2025 Are You Sexually Active? No [email or web address] Information not available 05/06/2025 At What Age Did You Start Smoking Tobacco? 13 Information not available 05/06/2025 How Much Tobacco Do You Smoke? 1 PPD [email or web address] Information not available 05/06/2025 How Many Years Have You Smoked Tobacco? 52 Information not available 05/06/2025 Which Types Of Nicotine-free Products Have You Used? Ecig [email or web address] Information not available 05/06/2025 Sex: Female Functional Status Question Answer Note LastModified by Organizat ion Details LastModified Time Do you use any illicit or recreational drugs? Yes Daily THC user [email or web address] Information not available 05/06/2025 What is your level of alcohol consumption? None [email or web address] Information not available 05/06/2025 What is your exercise level? None Information not available 05/06/2025 Do you or have you ever used any nicotine-free cigarettes, vape, or chewing tobacco? Yes [email or web address] Information not available 05/06/2025 Do you currently use nicotine-free products or are you a former user of these products? Formerly used nicotine-raffaele e products [email or web address] Information not available 05/06/2025 Mental Status None recorded. Family History Relationship Description Onset Age of this Age Resolved Age Notes LastModified by Organization Details LastModified Time Father Malignant tumor of colon Not available 2024 15:45:12 Father Kidney stone Not av ailable 05/06/2025 16:19:27 Maternal Grandmother Malignant tumor of breast [email or web address] Not available 2024 15:45:12 Maternal Grandmother Family history of breast cancer [email or web address] Not available 2024 15:45:12 Mother Essential hypertension [email or web address] Not available 15:45:12 Mother Family history of chronic obstructive lung disease 71 [email or web address] Not available 15:45:13 Paternal Grandmother Malignant tumor of colon andrse Not available 04/21 16:18:36 Medical History Condition [...] Details Recorded Time Tdap 9 completed Linda Erasmoavabolady [place] [facility] 05/02/2025 06:06:33 Tdap 1 completed Lindaangela Singh[place] [facility] 05/02/2025 06:06:33 Novel [id number], all formulations 9 completed Linda [place]asmoavareddy [place] [facility] 05/02/2025 06:06:33 Pneumococcal conjugate PCV 13 5 completed Linda [place]avared[place] [facility] 05/02/2025 06:06:33 Influenza, split virus, trivalent, preservative 1 completed Linda [place]ared[place] [facility] 05/02/2025 06:06:33 Influenza, split virus, trivalent, preservative 9 completed Linda Mattshavareddy [place] [facility] 05/02/2025 06:06:33 Influenza, split virus, trivalent, preservative 2 completed Linda [place]avared[place] [facility] [...] [facility] 05/02/2025 06:06:33 Novel [id number] 9 completed Linda [place]eshavareddy [place] [facility] 05/02/2025 06:06:33 Past Encounters Encounter ID Performer Location Encounter Start Date Encounter Closed Date Diagnosis/Indication Diagnosis SNOMED-CT Code Diagnosis ICD10 Code Diagnosis Note [id number] JUAN Ma [address] [facility] [address] [place] [address] 05/06/2025 15:23:19 05/06/2025 17:14:14 Primary insomnia 5328709 F51.01 - Insomnia remains symptomati c and [...] of Zolpidem, especially with COPD, [facility] .- Follow-up in 2 weeks to assess effectiven ess and tolerance of new medication s. Insur chavo will not cover doxepin per patient. Will send Gabapentin . Low back pain 391355794 M54.50 - Patient reports intermitte nt use of Lidoderm patches for shoulder pain secondary to past antibiotic use. - Prescribed Ibuprofen as needed for pain management . - Advised to monitor pain and report any changes or worsening symptoms. Chronic ob structive pulmonary disease 20067049 J44.9 - Chronic condition, currently stable but [...] worsen. Family his tory of breast cancer 477923522 Z80.3 - Patient has a family history of breast cancer. - Educated on the importance of regular mammograms despite patient's reluctance . - Discussed risks and benefits of mammograph y. Family his tory of cancer of colon 381209478 Z80.0 - Patient has a family history of colon cancer. - Educated on the importance of regular screenings despite patient's reluctance . - Discussed risks and benefits of colonoscop y. Osteopenia 983109123 M85 .80 - Previous diagnosis of osteopenia [...] help with exercise or home safety Dysuria 54648964 R30.0 - Patient reports pain/disco mfort with urination. - UA/UC as below. [id number] Navya Lees, JUAN Frankie [address] [facility]1] [address] [place] [address] 05/08/2025 09:21:17 05/08/2025 14:16:08 Health Concerns Section Related Observation LastModified by Organization Detai ls LastModified Time None Recorded Concern Status LastModified by Organization Details LastModified Time None Recorded Advance Directives Directive Y: Payers Insurance Date Sequence Insurance Name Policy Number Policy Johnson Covered Member ID Johnson Member ID Guarantor Name 04/30/2025 1 [facility] [email or web address] [id number] [facility] [email or web address] 05/13/2025 1 [facility] [id number] [facility] [id number] [facility] Notes Date Note Type Note Provider Name and Address Organization Details Recorded Time 05/06/2025 text/html The patient is a 65-year-old female with a history of COPD, presenting for initial visit and evaluation of insomnia and dyspnea. Insomnia: - History of insomnia, previously managed with Zolpidem for 5-10 years. - Discontinued Zolpidem 1.5 years ago due to concerns about Alzheimer's disease. - Currently using a combination of 3 Tylenol PM, 2 Kratom, and 2 5 mg THC gummies for sleep. - Reports feeling horribly groggy the next day and experiencing kidney pain. - Tried multiple medications for insomnia, including trazodone and Wellbutrin, with poor results. - Denies use of benzodiazepines or mood elevators. - Experiences restless legs, anxiety, and hip/knee pain at night. - Denies interest in a sleep study. COPD: - History of COPD, with a recent exacerbation in November requiring ER visit at [facility]. - Uses Anoro Ellipta inhaler and levobuterol nebulizer. - Has an oxygen concentrator at home for use at night if needed. - Reports dyspnea, congestion, and coughing at night, making sleep difficult. - Last used prednisone in November, which was helpful but caused side effects such as swelling, increased appetite, and jitteriness. - Mother had COPD. Family History: - Mother had COPD and HTN. - Father had colon cancer and kidney stones. - Maternal grandmother had breast cancer. - Paternal grandmother had colon cancer. - Daughter and son have dislocating patellas. Surgical History: - Three C-sections. - Hysterectomy. - Bilateral patellar realignment. Allergies: - Allergic to mafenide, pneumococcal vaccine, and sulfa medications. Social History: - Current smoker. - Denies alcohol use. - Works full-time with flexible hours. Navya Lees, JUAN [address], [place], [address], [place] - [facility] 05/07/2025 10:20:38 OBGyn Episode No OBEpisode recorded.
--- OUTSIDE RECORDS SUMMARY | 2025-05-17 08:33 | XMS_ITS | Clinical Summary ---
Author Organization [facility] Address [address] [place] [address] Care Team Providers Care Follow Up Specialist Name Role Phone Dolores Luis MD Primary Care Provider + [phone] Allergies Active Allergy Reactions Criticality Noted Date Comments Mafenide Hives 05/12/2010 Sulfa, noted as a child Pneumococcal Vaccine Other - Describe In Comment Field 08/05/2015 Redness, pain and swelling, hot to the touch Redness, pain and swelling, hot to the touch Sulfa (Sulfonamide Antibiotics) *Unknown 01/09/2021 Medications LIDODERM 5 %(700 mg/patch) patch APPLY 1 PATCH TO PAINFUL AREA OF SKIN FOR UP TO 12 HOURS WITHIN A 24-HOUR PERIOD. 30 Patch 0 3 Active ascorbic acid (VITAMIN C) 1,000 mg tablet Take 1 tablet by mouth once daily. 0 6 Active Cholecalciferol , Vitamin D3, (VITAMIN D-3) 400 unit capsule 0 Active famotidine (Pepcid AC) 10 mg tablet 1 Active ibuprofen-diphe nhydrAMINE 200-25 mg cap Take 1 Tablet by mouth. Active traZODone (DESYREL) 50 mg tabletIndicatio ns:Insomnia, idiopathic Take 1-3 tablets at bedtime 200 Tablet 1 2 Active buPROPion (WELLBUTRIN SR) 150 mg Sustained-Relea se tabletIndicatio ns:Tobacco abuse Take 1 Tablet (150 mg) by mouth 2 times daily. 180 Tablet 2 Active zolpidem (AMBIEN) 10 mg tabletIndicatio ns:Primary insomnia TAKE 1 TABLET (10 MG) BY MOUTH AT BEDTIME IF NEEDED FOR SLEEP. 60 Tablet 2 Active ibuprofen (ADVIL; MOTRIN) 800 mg tabletIndicatio ns:Body aches TAKE 1 TABLET (800 MG) BY MOUTH 3 TIMES DAILY IF NEEDED. 270 Tablet 3 Active levalbuterol (XOPENEX) 1.25 mg/3 mL nebulizer solutionIndicat ions:Other emphysema (HC) INHALE 3 ML VIA A NEBULIZER 2 TIMES DAILY FOR 90 DAYS. 180 mL 5 Active Anoro Ellipta 62.5-25 mcg/actuation inhalerIndicati ons:COPD mixed type (HC) INHALE 1 PUFF BY MOUTH 1X/DAY-DISCARD 6WKS AFTER OPENING/WHEN COUNTER READS '0', WHICHEVER COMES 1ST 60 Each 2 5 Active Active Problems Problem Noted Date Diagnosed Date Midline low back pain without sciatica 5 Controlled substance agreement terminated 2010 Overview (08/04/2017): Patient transferred to [facility] per note. Controlled substance agreement for vicodin / on file and signed 09/28/2011. Designated pharmacy: [...] on file and signed 09/21/2010. Designated pharmacy: [facility] Prescribing physician: Zeke Diagnosis: knee and hip pain after surgery Thomas Alanis MD .................... 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 Gender Identity Not on file Sexual Orientation Not on file Obstetrics History Last Filed Vital Signs Vital Sign Reading Time Taken Comments Blood Pressure 136/78 04/21/2022 11:11 AM CDT Pulse 95 04/21/2022 11:11 AM CDT Temperature 36.7 C (98 F) 04/21/2022 11:11 AM CDT Respiratory Rate 18 [...] 10/08/20 14, 09/27/2014, 09/04/2013, Additional history exists Pneumococcal series for age 50+ (2 of 2 - PPSV23) 07/29/2016 07/29/2015 Depression screening for age 12+ 10/13/2022 10/13/2021, 07/22/2021, 04/30/2016, Additional history exists BMI (ht and wt on same day) for age 18+ 04/21/2023 04/21/2022, 10/13/2021, 01/17/2021, Additional history exists Low Dose CT (for lung CA) age 50-80 04/30/2023 04/30/2022 COVID-19 vaccine series (2023- season) 2024 DEXA/DXA scan for age 65+ 2025 Influenza Vaccine (Season Ended) 2025 09/04/2013, 08/21/2012, 09/27/2011, Additional history exists Lipids for age 45-75 10/13/2026 10/13/2021, 12/01/2010, 08/07/2009 Tetanus booster 10/13/2031 10/13/2021, 04/29/2009 RSV vaccine for adults or (1 - 1-dose 75+ series) 2035 Tdap Completed 10/13/2021, 04/29/2009 Hepatitis C screening for age 18-79 Completed 04/21/2022 Hepatitis B series for 19+ Aged Out N o longer eligible based on patient's age to complete this topic Procedures Procedure Name Priority Date/Time Associated Diagnosis Comments CT CHEST SCREENING LOW DOSE WO CONTRAST Routine 04/30/2022 8:40 AM CDT Personal history of nicotine dependence ANTI HCV Routine 04/21/2022 11:45 AM CDT Need for hepatitis C screening test LIPID PANEL W REFLEX MEASURED LDL Routine 10/13/2021 6:07 PM ACIDIZER HELPER Routine general medical examination at health care facility XR MAMMO UNI DIAG FFDM LEFT (IA) Routine 10/08/2014 1:34 PM ACIDIZER HELPER Fibrocystic changes of left breast OCCULT BLOOD [...] DOSE LUNG CANCER SCREENING CT CHEST LOCATION: [facility] DATE/TIME: 04/30/2022 8:40 AM INDICATION: Lung [...] DOSE LUNG CANCER SCREENING CT CHEST LOCATION: [facility] DATE/TIME: 04/30/2022 8:40 AM INDICATION: Lung [...] this site: [email or web address].org/[email or web address]/[email or web address] Dolores Luis MD CT Final Result * ANTI HCV (04/21/2022 11:45 AM CDT) HEPATITIS C ANTIBODY Non-React chang Non-React chang 04/21/2022 11:25 PM CDT [facility] Comment:Antibodies to HCV no t detected; does not exclude the possibility of exposure to HCV. Blood BLOOD SPECIMEN / Unknown Venipuncture / Unknown 04/21/2022 11:45 AM CDT 04/21/2022 11:47 AM CDT Dolores Luis MD SEND OUTS Final Result [facility] [address] [place] [address], * (ABNORMAL) LIPID PANEL W REFLEX MEASURED LDL (10/13/2021 6:07 PM ACIDIZER HELPER) CHOLESTEROL,TOTAL 221(H) 100 - 199 mg/dL 10/13/2021 10:40 PM ACIDIZER HELPER [facility] TRIGLYCERIDES 127 <150 mg/dL 10/13/2021 10:40 PM ACIDIZER HELPER [facility] HDL CHOLESTEROL 58 >40 mg/dL 10:40 PM ACIDIZER HELPER [facility] NON-HDL CHOLESTEROL 163(H) <145 mg/dl 10/13/2021 10:40 PM ACIDIZER HELPER [facility] CHOL/HDL RATIO 3.81 <4.50 10/13/2021 10:40 PM ACIDIZER HELPER [facility] LDL CHOLESTEROL 138(H) <=130 mg/dL 10/13/2021 10:40 PM ACIDIZER HELPER [facility] VLDL CHOLESTEROL 25 <=30 mg/dL 10/13/2021 10:40 PM ACIDIZER HELPER [facility] PROVIDER ORDERED STATUS RANDOM 10/13/2021 10:40 PM ACIDIZER HELPER [facility] Blood BLOOD SPECIMEN / Unknown Venipuncture / Unknown 10/13/2021 6:07 PM ACIDIZER HELPER 10/13/2021 6:07 PM ACIDIZER HELPER us Dolores Luis MD CHEMISTRY Final Result [facility] [address] [place] [address], [place] * XR MAMMO UNI DIAG FFDM LEFT (10/08/2014 1:34 PM ACIDIZER HELPER) Anatomical Region Laterality Modality BREASTS, Breast Left Left Mammography Narrative 10/08/2014 1:57 PM ACIDIZER HELPER Diagnostic left breast Mammogram CLINICAL HISTORY: Nodule in the left breast COMPARISON: outside films from 09/27 Technique: Full field digital MLO and CC views were obtained Findings: The breast tissue is moderately dense, less than 50%. The area of concern spreads out completely. There is no new suspicious [...] M.D. Diagnostic Radiologist [email or web address] us Thomas Alanis MD MAMMO Final Resu lt * OCCULT BLOOD IFOBT STOOL (07/04/2012 1:27 PM CDT) STOOL BLOOD ,IFOBT Negative Negative, Invalid 07/04/2012 1:39 PM CDT [facility] Stool specimen (specimen) STOOL SPECIMEN / Unknown 07/04/2012 1:27 PM CDT 07/04/2012 1:27 PM CDT us Thomas Alanis MD LABORATORY Final Resu lt [facility] [address] [place] [address] from Last 3 Months or Most Recently Relevant to Health Maintenance Insurance Care Teams Follow Up Specialist Relationship Specialty [place] [id number] [place] [address] PCP - General Family Practice 01/09/21
--- NOTE | 2025-05-17 09:08 | ED.GENADULT ---
HPI - General Adult General Chief complaint: Dizziness/Vertigo Stated complaint: light headed and dizzy Time Seen by Provider: 05/17/25 08:34 Source: patient Mode of arrival: ambulatory Limitations: no limitations History of Present Illness HPI narrative: 65-year-old female presenting today with dizziness. Patient states she has felt dizzy for approximately 1 week. She notices that it comes on when she moves a certain way. She feels that the room starts to move around her. If she closes her eyes the sensation does go away. SHe states yesterday she turned around too fast and fell forward Home injuring her left hand. she denies headache. She denies chest pain or palpitations. Patient does have emphysema and has a chronic cough, this is unchanged. Sleeping habits are unchanged. She denies vomiting but has felt nauseated when the sensation comes. She has had a decreased appetite for about a week. She stop taking antibiotics yesterday, completed treatment for UTI. She denies any upper respiratory infection symptoms recently. She denies blurry vision, double vision or ringing in her ears. She denies any focal neurologic deficits. Related Data Home Medications ?Medication ?Instructions ?Recorded ?Confirmed albuterol 90 mcg/actuation aerosol mcg inhalation .prn 10/07/24 inhaler Previous Rx's ?Medication ?Instructions ?Recorded budesonide-formoterol HFA 80 2 inh inhalation BID #10.2 grams 10/08/24 mcg-4.5 mcg/actuation aerosol inhaler (Symbicort) ipratropium 0.5 mg-albuterol 3 mg 3 ml inhalation QID PRN shortness 10/08/24 (2.5 mg base)/3 mL nebulization of breath #90 mL soln meclizine 25 mg tablet 25 mg PO BID PRN #10 tabs 05/17/25 Allergies Allergy/AdvReac Type Severity Reaction Status Date / Time Sulfa (Sulfonamide Allergy Verified 05/17/25 08:39 Antibiotics) Review of Systems Status of ROS: Reports: 10 or more systems reviewed and unremarkable except as noted in History and below [facility] Social History Smoking Status: Former smoker Do you use any of these nicotine containing products: None Second hand tobacco smoke exposure: No How often do you have a drink containing alcohol: never AUDIT-C Alcohol total score: 0 Non-prescribed substance use: denies use service: No Exam Narrative: Exam Narrative: Well-nourished well-developed patient in no acute distress. Alert and oriented X3. Answers questions appropriately. Mood and affect are appropriate. Thoughts are goal oriented and rational. No tangential or magical thinking noted. Patient speaks in full sentences without needing to catch her breath. coughs periodically during our examination. HEENT: Normocephalic atraumatic. Pupils are equally round reactive to light. Extraocular muscles are intact. Conjunctivae are moist without any icterus noted. Moist mucous membranes. Posterior pharynx is normal. TMs are clear bilaterally. Cardiovascular: Heart is regular rate and rhythm S1 and S2 are present without any murmurs. Lungs: decreased breath sounds bilaterally. No wheezing present. Extremities: Bilateral lower extremities are without edema. Patient has bruising on the palmar surface of the left hand over the 5th and 4th digits. No tenderness to palpation with full range of motion. Skin: Well perfused without any obvious rashes. Strength is 5/5 of the upper and lower extremities. Reflexes are 2+ and symmetric at the knees. Romberg sign is negative. Cranial nerves 3-12 are normal. There is no nystagmus either horizontally or vertically. Gait is normal. Hints exam unremarkable. Positive Hallpike when patient looks to the right. Const: Vital Signs, click to edit/add: Vital Signs - 24 hr 05/17/25 08:33 05/17/25 09:27 Temperature 97.0 F L Pulse Rate [Right Pulse Oximeter] 106 H Respiratory Rate 18 Blood Pressure [Ri ght Upper Arm] 147/82 H Blood Pressure [or thostatic lying Ri ght Arm] 136/100 H Blood Pressure [or thostatic sitting Right Arm] 140/87 H Blood Pressure [or thostatic standing Right Arm] 135/111 H Pulse Oximetry 99 Oxygen Delivery Me thod Room Air Course Course ED Course: Differential diagnosis includes benign paroxysmal positional vertigo, labyrinthitis, vestibular neuritis. Less likely otitis media, migraine headache. History and physical not consistent with stroke or TIA. No evidence of orthostatic hypotension. EKG, read by me, shows normal sinus rhythm with sinus arrhythmia, incomplete right bundle-branch block, pulse 92. IV was established and patient received 500 mL of normal saline and Zofran. Did feel slightly better. Vital Signs Vital signs: Initial Vital Signs Temperature 97.0 F L 05/17/25 08:33 Temperature Source Temporal Artery Scan 05/17/25 08:33 Pulse Rate 106 H 05/17/25 08:33 Pulse Rhythm Regular 05/17/25 08:33 Pulse Strength 3+ Normal 05/17/25 08:33 Respiratory Rate 18 05/17/25 08:33 Blood Pressure 147/82 H 05/17/25 08:33 Blood Pressure Mean 103 05/17/25 08:33 Blood Pressure Position Sitting 05/17/25 08:33 Pulse Oximetry 99 05/17/25 08:33 Oxygen Delivery Method Room Air 05/17/25 08:33 Vital Signs Temperature 97.0 F L 05/17/25 08:33 Pulse Rate 106 H 05/17/25 08:33 Respiratory Rate 18 05/17/25 08:33 Blood Pressure 147/82 H 05/17/25 08:33 Pulse Oximetry 99 05/17/25 08:33 Oxygen Delivery Method Room Air 05/17/25 08:33 Temperature 97.0 F L 05/17/25 08:33 Pulse Rate 106 H 05/17/25 08:33 Respiratory Rate 18 05/17/25 08:33 Blood Pressure 136/100 H 05/17/25 09:27 Pulse Oximetry 99 05/17/25 08:33 Oxygen Delivery Method Room Air 05/17/25 08:33 Medications Administered Medications: Discontinued Medications Generic Name Dose Route Start Last Admin Trade Name Freq PRN Reason Stop Dose Admin Sodium Chloride 500 mls @ 500 mls/hr 05/17/25 08:55 05/17/25 09:48 0.9 % Sodium Chloride 500 Ml IV 05/17/25 09:54 Infused .Q1H ONE Infusion Ondansetron HCl 4 mg 05/17/25 08:55 05/17/25 09:14 Ondansetron 2 Mg/Ml Inj IVP 05/17/25 08:56 4 mg ONCE ONE Administration Medical Decision Making MDM Narrative Medical decision making narrative: 65-year-old female with probable BPPV. Will treat with meclizine, slow movement in fluids. Patient is directed to follow up in approximately 1 week if not feeling better. Also discussed Nicho maneuver. Discussed reasons to return to the ER including worsening dizziness, dizziness it does not improve with rest, chest pain, confusion. ECG Data Attestation: I personally reviewed and interpreted this ECG as follows: Discharge Plan Discharge Clinical Impression: Benign paroxysmal positional vertigo Patient Disposition: Home, Self-Care Condition: Stable Instructions: Benign Paroxysmal Positional Vertigo (ED) Additional Instructions: you can Google something call the Nicho maneuver. you can try to do this at home to see if this helps. Recommend you follow-up with your primary care provider in approximately 1 week if you are not feeling better. you can consider doing physical therapy to help with this as well. Make sure you are moving slowly, staying well hydrated. Okay to take medications as needed/ as prescribed. Prescriptions: New meclizine 25 mg tablet 25 mg PO BID PRNQty: 10 0RF No Action albuterol 90 mcg/actuation aerosol inhalation .prn ipratropium-albuterol 0.5 mg-3 mg(2.5 mg base)/3 mL solution for nebulization 3 ml inhalation QID PRN (Reason: shortness of breath) Qty: 90 0RF budesonide-formoterol [Symbicort] 80-4.5 mcg/actuation HFA aerosol inhaler 2 inh inhalation BID Qty: 10.2 1RF Rx Instructions: Rinse mouth after inhalation Follow Up/Referrals: Provider,Not a Local [Non-Staff, Family Practice] Stand Alone Forms: GVISP 1 Info Instructions
[2025-05-17] MEDS: ONDANSETRON 2 MG/ML inj 4 MG IVP (09:14)
[2025-05-17] MEDS: 0.9 % SODIUM CHLORIDE 500 ML 500 ML IV (09:14)
--- OUTSIDE RECORDS SUMMARY | 2025-05-17 09:14 | XMS_ITS | Continuity of Care Document ---
Author Organization [facility] Frankie RAMIREZ Address [address] [place] [address] Assessment Encounter Date Assessment Date Assessment LastModified [...] Scheduled: YES Next Routine Visit Scheduled: YES andres Not available 05/07/2025 10:17:11 Plan of Treatment Reminders Order Date Submit Date Provider Last Modified By Organization Details Last Modified Time Details Appointments Commerci al Physical 2024 04:00P M Navya Lees DNP Not available Not available Not available Routine Visit 2024 02:20P M Navya Lees DNP Not available Not available Not available Lab urinalys is, dipstick , auto 2024 025 sandra 2 Frankie, [address], [place], [address], 05/06/2025 18:46:00 culture, urine 2024 025 KHOI [facility], [address], [place], [address], 05/08/2025 09:05:21 Referral None recorded . Procedures None recorded . Surgeries None recorded . Imaging None recorded . Medication Orders doxepin 3 mg tablet 2024 025 [id number], [address], [place], [address], 05/06/2025 18:46:05 mirtazap ine 7.5 mg tablet 2024 025 [facility], [address], [place], [address], 05/07/2025 10:19:12 cycloben zaprine 5 mg tablet 2024 025 [facility], [address], [place], [address], 05/06/2025 18:46:06 predniso ne 20 mg tablet 2024 025 [facility], [address] , [place], [address], 05/06/2025 18:46:05 levalbut gene 1.25 mg/3 mL solution for nebuliza tion 2024 025 [facility], [address] , [place], [address], 05/06/2025 18:46:05 Patient TargetsNo targets recorded. Patient Instructions Encounter Date Encounter Id Patient Instructions Last Modified By Organization Details Last Modified Time 05/06/2025 [id number] - Prednisone 40 mg once daily for 5 days to help reduce your bronchitis and wheezing; prescription sent to your [facility] pharmacy. - Try doxepin at bedtime [...] First Call your [facility] at [phone] for any urgent health related concerns that [...] your POLST, Health Care Durable Power of Formula Bottler, or other such medical forms, please bring [...] Note LastModifiedBy Organization Detail LastModifiedTime 05/06/20 25 05/06/2025 urina lysis , dipst ick, auto Color Yellow Not Available [place] [address], [place], [address], 05/06/2025 17:01:10 05/06/20 25 05/06/2025 urina lysis , dipst ick, auto Clarity Clear Not Available [place] [address], [place], [address], 05/06/2025 17:01:10 05/06/20 25 05/06/2025 urina lysis , dipst ick, auto Leukocytes Trace (+-) Not Available [place] [address], [place], [address], 05/06/2025 17:01:10 05/06/20 25 05/06/2025 urina lysis , dipst ick, auto Nitrite negati ve Not Available [place] [address], [place], [address], 05/06/2025 17:01:10 05/06/20 25 05/06/2025 urina lysis , dipst ick, auto Urobilinogen 0.2 (3.5) Not Available [place] [address], [place], [address], 05/06/2025 17:01:10 05/06/20 25 05/06/2025 urina lysis , dipst ick, auto Protein Trace (15) Not Available [place] [address], [place], [address], 05/06/2025 17:01:10 05/06/20 25 05/06/2025 urina lysis , dipst ick, auto pH 6.0 Not Available [place] [address], [place], [address], 05/06/2025 17:01:10 05/06/20 25 05/06/2025 urina lysis , dipst ick, auto Blood Large (3+) Not Available [place] [address], [place], [address], 05/06/2025 17:01:10 05/06/20 25 05/06/2025 urina lysis , dipst ick, auto Specific [place] 1.015 Not Available [place] [address], [place], [address], 05/06/2025 17:01:10 05/06/20 25 05/06/2025 urina lysis , dipst ick, auto Ketone Negati ve (-) Not Available [place] [address], [place], [address], 05/06/2025 17:01:10 05/06/20 25 05/06/2025 urina lysis , dipst ick, auto Bilirubin Negati ve (-) Not Available [place] [address], [place], [address], 05/06/2025 17:01:10 05/06/20 25 05/06/2025 urina lysis , dipst ick, auto Glucose Negati ve (-) Not Available [place] [address], [place], [address], 05/06/2025 17:01:10 05/02/20 25 04/30/2022 CT, chest , w/o [...] Organization Details Recorded Time Irritable bowel syndrome 46982076 Active 2009 Linda Keshavared dy null, [place] - [facility] 5 06:06:27 Tobacco user 801945700 Active 2010 Linda Keshavared dy null[place] [facility] 5 06:06:27 Chronic obstructive pulmonary disease 32546821 Active 2009 Linda Keshavared dy null[place] - [facility] 5 06:06:27 Headache 56377688 Active 2009 Linda Keshavared dy [place] [facility] 5 06:06:27 Low back pain 336505546 Active 2014 Linda Keshavared dy null[place] - [facility] 5 06:06:27 Patient encounter status 136110694 Active 2009 Linda Keshavared dy null[place] - [facility] 5 06:06:28 Drug therapy finding 115904553 Active 2010 Linda Keshavared dy null[place] - [facility] 5 06:06:28 Pain of multiple joints 63484723 Active 2009 Linda Keshavared dy null[place] - [facility] 5 06:06:28 Primary insomnia 5212630 Active 2009 Linda Keshavared dy null[place] - [facility] 5 06:06:28 Polyp of colon 28634573 Active 2009 Linda Keshavared dy null[place] - [facility] 5 06:06:28 Dysuria 59641490 Active 2024 Navya Lees, JUAN [address] [place], [address] , [place] - [facility] 5 17:00:57 Osteopenia 877186939 Active 2024 Navya Lees DNP [address] [place], [address] , [facility] - [facility] 5 10:19:05 Blood chemistry outside reference range 739980287 Active 2024 Navya Lees DNP [address] [place], [address] , [place] - [facility] 09:34:41 Disorder of bone 72667126 Active 2024 Navya Lees DNP [address] [place], [address] , [place] - [facility] 5 09:36:47 Acute urinary tract infection 320821879 Active 2024 Navya Lees DNP [address] [place], [address] , [place] - [facility] 11:30:20 Problem Notes None recorded. Procedures Surgical History Date Name Laterality Status Provider Name and Address Organization Details Recorded Time 025 Venipuncture, Blood Draw completed Nataly Grewal [place] [facility] 05/08/2025 14:15:57 014 Date of Last Mammogram completed Linda Gaxiola [place] - [facility] 05/02/2025 06:32:48 011 Date of Last Colonoscopy completed Linda Gaxiola [place] [facility] 05/02/2025 06:32:58 reconstruction of anterior cruciate ligament of knee joint completed Navya Lees DNP [address] [place], [address], [place] - [facility] 05/06/2025 16:20:45 section completed Linda Garciareddy [facility] 05/02/2025 06:31:31 nonsurgical manipulation of knee joint completed Linda Minor [facility] 05/02/2025 06:32:13 Hysterectomy completed Navya Lees DNP [address] [place], [address], [facility] 05/06/2025 16:20:54 Imaging Results None recorded. Procedure Notes None recorded. Medical Equipment None Reported. Allergies Allergen ID Allergen Name Allergen Category Reaction Reaction Severity Criticality Documentation Date Start Date Code Code System Note Provider Name and Address Organization Details Recorded Time 09380 mafenide Not available hives Not available Not available 04/30/20252009 6572 RxNorm Sulfa , noted as a child Not Available [facility] - External Data Service - prod 13:19:05 52062 Substance with sulfonami de structure and antibacte rial mechanism of action (substanc e) medicatio n Not available Not available Not available 04/30/20252020 09479 8003 SNOMED Other react ions and sever ities : '*Unk nown' . Linda Gutierrezdaksha ddy null, [facility] 5 06:05:58 51310 Pneumococ heidi vaccine Not available Not available Not available Not available 05/02/20252014 75629 7 RxNorm Lindabarrie Meyer ddy null, [facility] 5 06:07:11 81259 mirtazapi ne medicatio n Not available Not available Not available 05/08/2025 61710 RxNorm Navya Lees DNP [address] [facility], [place], [address], [facility] 5 11:36:44 Medications Name [...] marijuana (cannabis )-THC active in addition to Yoruba Kratom capsules Not Available Not Available Not Available Vitals Date Recorded Body weight Body mass index (BMI) Body height Oxygen saturation Oxygen saturation in Arterial blood by Pulse oximetry Body temperature Heart rate Systolic blood pressure Diastolic blood pressure Provider Name and Address Organization Details Last Updated DateTime 09177.1 9 g 29.1 kg/m2 157.48 cm 95 % 95 % 98.2 [degF] 102 /min 133 mm[Hg] 82 mm[Hg] Lorena Smith [place] - [facility] 15:51:52 Social History Question Answer Notes LastModified by Organizat ion Details LastModified Time Tobacco Smoking Status Current Every Day Smoker Linda hines [place] - [facility] 05/02/2025 06:09:20 Do You Have An Advance Directive? Yes [email or web address] Information not available 05/06/2025 Is Blood Transfusion Acceptable In An Emergency? Yes [email or web address] Information not available 05/06/2025 What Is Your Code Status? DNR [email or web address] Information not available 05/06/2025 Do You Have A Directive To Physicians? No [email or web address] Information not available 05/06/2025 What Is The Highest Grade Or Level Of School You Have Completed Or The Highest Degree You Have Received? NA34527-1 [email or web address] Information not available 05/06/2025 Are There Any Guns Present In Your Home? Yes Information not available 05/06/2025 Where Do You Live? [place] [email or web address] Information not available 05/06/2025 Do You Have Any Concerns About Sexual Activity? No Information not available 05/06/2025 Do You Have A Medical Power Of Formula Bottler? No [email or web address] Information not available 05/06/2025 Do You Have An Out Of Hospital DNR? Yes [email or web address] Information not available 05/06/2025 What Is Your Current Pack Years? 30ormorepack years [email or web address] Information not available 05/06/2025 Do You Have A Patient Advocate? No [email or web address] Information no t available 05/06/2025 What Is Your Relationship Status? Information not available 05/06/2025 Do You Use Your Seat Belt Or Car Seat Routinely? Yes [email or web address] Information not available 05/06/2025 Are You Sexually Active? No Information not available 05/06/2025 At What Age Did You Start Smoking Tobacco? 13 [email or web address] Information not available 05/06/2025 How Much Tobacco Do You Smoke? 1 PPD Information not available 05/06/2025 How Many Years Have You Smoked Tobacco? 52 Information not available 05/06/2025 Which Types Of Nicotine-free Products Have You Used? Ecig Information not available 05/06/2025 Sex: Female Functional Status Question Answer Note LastModified by Organizat ion Details LastModified Time Do you use any illicit or recreational drugs? Yes Daily THC user Information not available 05/06/2025 What is your level of alcohol consumption? None [email or web address] Information not available 05/06/2025 What is your exercise level? None Information not available 05/06/2025 Do you or have you ever used any nicotine-free cigarettes, vape, or chewing tobacco? Yes [email or web address] Information not available 05/06/2025 Do you currently use nicotine-free products or are you a former user of these products? Formerly used nicotine-raffaele e products [email or web address] Information not available 05/06/2025 Mental Status None recorded. Family History Relationship Description Onset Age of this Age Resolved Age Notes LastModified by Organization Details LastModified Time Father Malignant tumor of colon [email or web address] Not available 2024 15:45:12 Father Kidney stone Not av ailable 05/06/2025 16:19:27 Maternal Grandmother Malignant tumor of breast [email or web address] Not available 2024 15:45:12 Maternal Grandmother Family history of breast cancer [email or web address] Not available 2024 15:45:12 Mother Essential hypertension [email or web address] Not available 15:45:12 Mother Family history of chronic obstructive lung disease 71 [email or web address] Not available 15:45:13 Paternal Grandmother Malignant tumor of colon Not available 04/21 16:18:36 Medical History Condition Response Urinary Incontinence N Depression N Stroke N Prediabetes N Irregular Heartbeat Y Breast Cancer N Plantar Fasciitis N Hypothyroidism N COPD/Asthma Y High blood pressure (Hypertension) N High cholesterol (Hyperlipidemia) N Diabetes N Diverticulitis N Heart Disease N Osteoporosis N Gynecological History Statement/Question Response [...] [facility] 05/02/2025 06:06:33 Novel [id number], all formulations 9 completed Linda Gaxiola null[place] [facility] 05/02/2025 06:06:33 Pneumococcal conjugate PCV 13 5 completed Linda Keshavareddy null[place] [facility] 05/02/2025 06:06:33 Influenza, split virus, trivalent, preservative 1 completed Linda [place]havareddy [place] [facility] 05/02/2025 06:06:33 Influenza, split virus, trivalent, preservative 9 completed [place]havareddy [place] [facility] 05/02/2025 06:06:33 Influenza, split virus, trivalent, preservative 2 completed Linda Keshavareddy [place] - [...] [facility] 05/02/2025 06:06:33 Novel [id number] 9 completed Linda Keshavareddy [place] [facility] 05/02/2025 06:06:33 Past Encounters Encounter ID Performer Location Encounter Start Date Encounter Closed Date Diagnosis/Indication Diagnosis SNOMED-CT Code Diagnosis ICD10 Code Diagnosis Note [id number] JUAN Ma [address] [place] [id number] 05/06/2025 15:23:19 05/06/2025 17:14:14 Primary insomnia 3150480 F51.01 - Insomnia remains symptomati c and [...] of Zolpidem, especially with COPD, and the organati on's policy on controlled substances .- Follow-up in 2 weeks to assess effectiven ess and tolerance of new medication s. Insur [facility] will not cover doxepin per patient. Will send Gabapentin . Low back pain 920808499 M54.50 - Patient reports intermitte nt use of Lidoderm patches for shoulder pain secondary to past antibiotic use. - Prescribed Ibuprofen as needed for pain management . - Advised to monitor pain and report any changes or worsening symptoms. Chronic ob structive pulmonary disease 88973041 J44.9 - Chronic condition, currently stable but [...] worsen. Family his tory of breast cancer 587133600 Z80.3 - Patient has a family history of breast cancer. - Educated on the importance of regular mammograms despite patient's reluctance . - Discussed risks and benefits of mammograph y. Family his tory of cancer of colon 736276267 Z80.0 - Patient has a family history of colon cancer. - Educated on the importance of regular screenings despite patient's reluctance . - Discussed risks and benefits of colonoscop y. Osteopenia 814007799 M85 .80 - Previous diagnosis of osteopenia [...] help with exercise or home safety Dysuria 87361786 R30.0 - Patient reports pain/disco mfort with urination. - UA/UC as below. Health Concerns Section Related Observation LastModified by Organization Detai ls LastModified Time None Recorded Concern Status LastModified by Organization Details LastModified Time None Recorded Payers Encounter Date Sequence Insurance Name Policy Number Policy Johnson Covered Member ID Johnson Member ID Guarantor Name 05/06/2025 1 [employer] ([facility]) [id number] [facility] [id number] [facility] Notes Date Note Type Note Provider Name [...] exacerbation in November requiring ER visit at [facility]. - Uses Anoro Ellipta inhaler and levobuterol [...] flexible hours. Navya Lees, JUAN [address], [place], [address], [place] - [facility] 05/07/2025 10:20:38 OBGyn Episode No OBEpisode recorded.
[2025-05-17 09:27] VITALS: BP 135/111; BP 136/100; BP 140/87
== END 2025-05-17 09:49 | disposition home or self-care (01) ==
PROVIDERS: Emergency Provider Family Medicine; PCP Nurse Practitioner
DX: H81.10 Benign paroxysmal vertigo, unspecified ear (principal); I45.10 Unspecified right bundle-branch block
CPT/HCPCS: 93005; 96374; 99284; J2405; J7030